=== PATIENT | male | born 1950 | race Caucasian/White ===

== ENCOUNTER → 2023-10-20 08:20 | Outpatient (REF) | payer MEDICARE, SELFPAY | LOC: RCS 08:20 | PROVIDERS: ATTENDING PHYSICIAN Internal Medicine | DX: I25.10 Atherosclerotic heart disease of native coronary artery without angina pectoris (principal) | CPT/HCPCS: 93017; 93005; 93350 ==

== ENCOUNTER → 2023-12-15 07:36 | Outpatient (REF) | payer MEDICARE, SELFPAY | LOC: EMG 07:36 | PROVIDERS: ATTENDING PHYSICIAN Nurse Practitioner Family; FAMILY PHYSICIAN Internal Medicine | DX: R20.2 Paresthesia of skin (principal); R20.0 Anesthesia of skin | CPT/HCPCS: 95886; 95910 ==

== ENCOUNTER 2024-03-06 07:14 | Day surgery (SDC) | payer MEDICARE, SELFPAY ==
[2024-03-06] VITALS (14 sets, daily range): BP systolic 101–159; BP diastolic 66–82; BMI 32.2
--- NOTE | 2024-03-06 10:17 | ITS.CL.CATH ---
[employer] Custodian - Catheterization
Cardiac Catheterization
Procedure Report:
LEFT HEART CATHETERIZATION
Date of Procedure: March 06, 2024
Referring: Dr. Santos Adkins
PROCEDURES:
1. Left heart catheterization with coronary and single-plane left ventriculography
INDICATION: This is a 74-year-old gentleman who was recently diagnosed with Parkinson's disease and a prior history of coronary artery disease with multiple overlapping RCA stent. His coronary history dates back to 12/2010 when he was admitted to
[facility] and ruled in for a small non-ST segment elevation myocardial infarction. He was referred for coronary angiography and underwent successful placement of overlapping 3.5 x 28 mm, 3.5 x 28 mm and 3.5 x 28 mm Xience stents from the
distal to proximal RCA which were postdilated with a 3.75 mm noncompliant balloon. He was noted to have significant residual atherosclerotic disease in a large OM 2 and return for attempted PCI via the right radial approach. Unfortunately, a
balloon would not cross and he returned several weeks later for PCI using a right femoral approach. The stenotic segment was crossed and balloon angioplasty was performed. Unfortunately, the lesion proved quite fibrotic and resistant to balloon
dilation even at high pressures. A dissection flap was noted at the area of balloon inflation and we did not feel comfortable proceeding with plaque modification with rotational atherectomy at that time. He followed up in the office and reported
that he had been doing very well and was free of any anginal symptoms and was exercising on the treadmill regularly and feeling fine. The last stress study was on October 20, 2023 and he exercised on a Sundar protocol for 7:36 achieving 9 METS of
physical activity. He developed significant ST segment depression in leads II, III, aVF and V4-V6 which normalized 1 minute in recovery. The stress echo imaging demonstrated no stress-induced ischemic wall motion abnormality and medical management
was continued. In early January 2024 [place] and developed chest, midepigastric, and bilateral arm discomfort lasting hours. He did not want to seek evaluation at any of the local hospitals and instead treated his symptoms with
Advil or Celebrex. He returned home and had been feeling well but tried walking on the treadmill and experienced the same discomfort. He was seen in our office on 03/02/2024 and is now referred for coronary angiography.
ACCESS: Right radial artery, 6 Mal[place]ian sheath
HEMODYNAMICS : (mmHg)
AO (s/d) : 113/63, 82
LV (s/d) : 115/6
LVEDP : 15
CORONARY FINDINGS
DOMINANCE: Right
LEFT MAIN: Normal
LEFT ANTERIOR DESCENDING: The LAD arises normally from the left main and runs in the anterior interventricular groove. The proximal LAD is moderate to heavily calcified and has a 50-60% stenosis from the origin to the proximal vessel. Several
small diagonal branches arise from the mid LAD. The mid to distal LAD has only minor irregularities.
CIRCUMFLEX: The circumflex gives rise to a small-medium caliber OM1 that runs in a distribution typical for a ramus intermedius and has an 80% ostial-proximal stenosis best seen in TURKISH caudal image. OM 2 is very small. The mid circumflex proximal
to OM 3 has a 60% stenosis. OM 3 has an 80-90% stenosis in the proximal vessel. This stenotic segment was highly resistant to balloon inflation back in 2010 when previous attempts at angioplasty were unsuccessful as the lesion was found to be
non-dilatable
RIGHT CORONARY ARTERY: The right coronary artery is known to be a dominant vessel. There are overlapping proximal to mid RCA stents which become 100% occluded within the area of stent overlap of the proximal and mid stents. The distal right
coronary artery is noted to fill via well-developed [id number]-[id number] collaterals.
VENTRICULOGRAPHY: Left ventriculography was performed in an ACOSTA projection. The digital single-plane left ventricular ejection fraction is estimated at 65% with very mild inferoapical hypokinesis
RADIATION SUMMARY: Fluoro Time (min): 2.8, Dose (mGy): 469, DAP (Gy.cm2) : 35.5
Closure Device: TR band
CONCLUSIONS
1. Multivessel coronary artery disease with 100% of the mid RCA, high grade and non-dilatable stenosis in OM3. OM1 has an 80% ostial stenosis and the ostium/proximal LAD has a calcified 50-60% stenosis.
2. Preserved LVEF
RECOMMENDATIONS
1. Will refer for CT surgical evaluation with bypass targets to PDA +/- PLB, OM1, OM3, and LAD
Copy to: Dr. Santos Adkins, Dr. Reece Stauffer
== END 2024-03-06 13:20 | disposition home or self-care (01) ==
LOC: CATH 07:14
PROVIDERS: ATTENDING PHYSICIAN Internal Medicine Interventional Cardiology; FAMILY PHYSICIAN Internal Medicine
DX: I25.10 Atherosclerotic heart disease of native coronary artery without angina pectoris (principal); Z95.5 Presence of coronary angioplasty implant and graft; G20.A1 Parkinson's disease without dyskinesia, without mention of fluctuations; I25.2 Old myocardial infarction; Z79.82 Long term (current) use of aspirin
CPT/HCPCS: 93458; C1894; Q9967

== ENCOUNTER → 2024-03-28 13:24 | Outpatient (REF) | payer MEDICARE, SELFPAY | LOC: RCS 13:24 | PROVIDERS: ATTENDING PHYSICIAN Thoracic Surgery (Cardiothoracic Vascular Surgery); FAMILY PHYSICIAN Internal Medicine; REFERRING PHYSICIAN Internal Medicine Interventional Cardiology | DX: Z01.810 Encounter for preprocedural cardiovascular examination (principal) | CPT/HCPCS: 71250; 93306 ==

== ENCOUNTER 2024-04-09 05:07 | Inpatient (IN) | payer MEDICARE, SELFPAY ==
[2024-04-05 08:33] VITALS: BMI 32.3
[2024-04-05 09:20] LABS: % Basophils 0.5 % (0-2); % Eosinophils 1.2 % (0-6); % Immature Granulocytes 0.4 % (0-0.5); % Lymphocytes 20.6 % (20.5-51.1); % Monocytes 8.1 % (1.7-9.3); % Neutrophils 69.2 % (42.2-75.2); Absolute Eosinophils 0.1 10^3/uL (0-0.7); Absolute Lymphocytes 1.7 10^3/uL (1.2-3.4); Absolute Monocytes 0.7 10^3/uL (0.1-0.6); Absolute Neutrophils 5.6 10^3/uL (1.4-6.5); Hematocrit 43.3 % (39.0-52.0); Hemoglobin 14.9 g/dL (13.0-18.0); Mean Corp Hgb Conc. 34.4 g/dL (33.0-37.0); Mean Corpuscular Hgb 29.6 pg (27.0-31.0); Mean Corpuscular Volume 85.9 fL (80.0-94.0); Mean Platelet Volume 11.9 fL (7.4-10.4); Nucleated Red Blood Cells % 0 % (-); Platelet Count 193 10^3/uL (130-400); Red Blood Cell Count 5.04 10^6/uL (4.70-6.10); Red Cell Dist. Width 13.2 % (11.5-14.5); White Blood Cell Count 8.1 10^3/uL (4.8-10.8)
[2024-04-05 09:36] LABS: INR 1.03
[2024-04-05 09:37] LABS: APTT 28.1 Sec (23.4-35.0)
[2024-04-05 09:43] LABS: ALT (SGPT) 39 U/L (0-50); AST (SGOT) 33 U/L (17-59); Albumin 4.7 g/dl (3.5-5.0); Alkaline Phosphatase 50 U/L (38-126); Blood Urea Nitrogen 22 mg/dl (9-20); Carbon Dioxide 31 mmol/L (22-30); Chloride 100 mmol/L (98-107); Direct Bilirubin 0.2 mg/dl (0.0-0.4); Estimated Creatinine Clearance 60 ml/min; Glucose 99 mg/dl (70-99); Potassium 4.1 mmol/L (3.5-5.1); Sodium 142 mmol/L (135-145); Total Bilirubin 2.8 mg/dl (0.2-1.3); Total Protein 6.9 g/dl (6.3-8.2); eGFR > 60.00
[2024-04-05 09:43] LABS: Urine Albumin Negative (Neg - Trace); Urine Bilirubin Negative (Negative); Urine Character Clear (Clear); Urine Color Yellow; Urine Glucose Negative (Negative); Urine Ketone Negative (Negative); Urine Leukocyte Negative (Negative); Urine Nitrite Negative (Negative); Urine Occult Blood Negative (Negative); Urine Specific Gravity 1.015 (<1.030); Urine Urobilinogen Negative (Neg - 1+); Urine pH 6.5 (5.0-9.0)
[2024-04-05 10:33] LABS: Glycohemoglobin (HgbA1c) 5.8 % (4.0-5.6)
--- NOTE | 2024-04-05 10:34 | CM ---
CM following for DC planning needs.
Met w/ patient, spouse Kate and dtr. Elda during PATs for planned CABG 04/09.
Pt. reports that he resides w/ spouse in a private, 1 story home w/ 2-3 LAMONT. There is also a ramp to enter.
Pt. is functionally indep. w/ ADLs, mobility without the use of any assisted device. + drives.
Pt. has RX plan and uses [facility] in [facility] for prescription needs.
Reviewed pre and post op routines.
Soap, shower instructions and CABG booklet reviewed/provided.
Discussed post op MD appointments, Cardiac Rehab and visit from CT Transitional Care RN/ pt. agreeable to this.
Plan is for CABG 04/09.
Antic. DC plan is for home w/ CT Transitional Care RN.
CM to follow.
[2024-04-09] VITALS (17 sets, daily range): BP systolic 91–152; BP diastolic 57–89; BMI 28.1
[2024-04-09] MEDS: BACTROBAN 2% OINTMENT 1 APPLIC NASAL ×2 (05:41→20:04)
[2024-04-09] MEDS: PROTONIX 40 MG PO (05:43)
[2024-04-09] MEDS: MAGNESIUM OXIDE 500 MG PO (05:43)
[2024-04-09] MEDS: LOPRESSOR 12.5 MG PO (05:55)
--- NOTE | 2024-04-09 06:11 | PTCARENOTE ---
admitted pt to 2263. pt confirmed NPO since midnight and 2 showers @ home. pt clipped and prepped with G wipes, admission questions completed, pre-op meds given. pre-op education provided.
[2024-04-09 07:24] LABS: Urine Albumin Trace (Neg - Trace); Urine Bilirubin Negative (Negative); Urine Character Clear (Clear); Urine Color Yellow; Urine Glucose Negative (Negative); Urine Ketone Negative (Negative); Urine Leukocyte Negative (Negative); Urine Nitrite Negative (Negative); Urine Occult Blood Negative (Negative); Urine Urobilinogen Negative (Neg - 1+)
[2024-04-09 07:48] LABS: ACT+ - POC 112 Seconds (82-134)
[2024-04-09 09:41] LABS: B.E. - POC 2.8 mmol/L; Glucose - POC 142 mg/dl (70-99); HCO3 - POC 26 mmol/L (21-28); Hematocrit - POC 37 % PCV (42-52); Hemodilution- POC No; Hemoglobin Calculated - POC 12.7; Ionized Calcium - POC 1.21 mmol/L (1.15-1.33); O2 Saturation %Calculated-POC 99.9 % (94-98); PCO2 - POC 36 mmHg (35-48); PO2 - POC 287 mmHg (83-108); POC Comment PRE; Potassium - POC 3.4 mmol/L (3.5-5.1); Sodium - POC 141 mmol/L (136-145); pH - POC 7.47 (7.35-7.45)
[2024-04-09 10:02] LABS: ACT+ - POC > 1003 Seconds (82-134)
[2024-04-09 10:15] LABS: B.E. - POC 5.3 mmol/L; Glucose - POC 158 mg/dl (70-99); HCO3 - POC 30 mmol/L (21-28); Hematocrit - POC 31 % PCV (42-52); Hemodilution- POC Yes; Hemoglobin Calculated - POC 10.7; PCO2 - POC 41 mmHg (35-48); PO2 - POC 358 mmHg (83-108); POC Comment CPB; Potassium - POC 4.1 mmol/L (3.5-5.1); Sodium - POC 139 mmol/L (136-145); pH - POC 7.46 (7.35-7.45)
[2024-04-09 10:29] LABS: B.E. - POC 4.6 mmol/L; Glucose - POC 154 mg/dl (70-99); HCO3 - POC 29 mmol/L (21-28); Hematocrit - POC 32 % PCV (42-52); Hemodilution- POC Yes; Hemoglobin Calculated - POC 10.9; Ionized Calcium - POC 1.09 mmol/L (1.15-1.33); O2 Saturation %Calculated-POC 99.9 % (94-98); PCO2 - POC 43 mmHg (35-48); PO2 - POC 309 mmHg (83-108); POC Comment CPB; Potassium - POC 3.6 mmol/L (3.5-5.1); Sodium - POC 141 mmol/L (136-145); pH - POC 7.44 (7.35-7.45)
[2024-04-09 10:59] LABS: ACT+ - POC 718 Seconds (82-134)
[2024-04-09 11:26] LABS: B.E. - POC 3.9 mmol/L; Glucose - POC 129 mg/dl (70-99); HCO3 - POC 30 mmol/L (21-28); Hematocrit - POC 30 % PCV (42-52); Hemodilution- POC Yes; Hemoglobin Calculated - POC 10.3; Ionized Calcium - POC 1.09 mmol/L (1.15-1.33); O2 Saturation %Calculated-POC 99.9 % (94-98); PCO2 - POC 48 mmHg (35-48); PO2 - POC 340 mmHg (83-108); POC Comment CPB; Potassium - POC 3.6 mmol/L (3.5-5.1); Sodium - POC 142 mmol/L (136-145); pH - POC 7.39 (7.35-7.45)
[2024-04-09 11:36] LABS: ACT+ - POC 596 Seconds (82-134)
[2024-04-09 12:05] LABS: B.E. - POC 2.6 mmol/L; Glucose - POC 117 mg/dl (70-99); HCO3 - POC 28 mmol/L (21-28); Hematocrit - POC 32 % PCV (42-52); Hemodilution- POC Yes; Ionized Calcium - POC 1.09 mmol/L (1.15-1.33); O2 Saturation %Calculated-POC 99.9 % (94-98); PCO2 - POC 44 mmHg (35-48); PO2 - POC 316 mmHg (83-108); POC Comment CPB; Potassium - POC 3.6 mmol/L (3.5-5.1); Sodium - POC 144 mmol/L (136-145); pH - POC 7.41 (7.35-7.45)
[2024-04-09 12:09] LABS: ACT+ - POC 115 Seconds (82-134)
--- NOTE | 2024-04-09 12:36 | W.CVOR.SURPR ---
CV[facility] Surgeon Immed Pre Op
-
I have examined this patient prior to performance of the scheduled procedure.
The patient's condition is unchanged from the time of the dictated/written History and
Physical and the patient is able to undergo the scheduled procedure.
--- NOTE | 2024-04-09 12:37 | W.IMMPOSTOP ---
Addendum entered and electronically signed by Gonzalo Paul MD 04/09/24 16:29:
[id number]
Original Note:
Surgical Immed Post Op Note
-
CARDIAC SURGERY OPERATIVE NOTE:
Preoperative Dx:
MVCAD
Postoperative Dx:
Same
Procedures:
1) Median sternotomy
2) Takedown of CHIQUI (narrow pedicle)
3) Endoscopic harvest/prep of RLE GSV
4) CABG x 4 (CHIQUI to LAD, sGSV to OM1 to OM3, GSV to PDA)
Surgeon:
Gonzalo Paul M.D.
Assistants:
Pattie Oneil P.A.-C. - first line production supervisor throughout
Ct Puga P.A.-C. - endoscopic harvest/prep of RLE GSV; cliltz-qmre-fyrb closure
Anesthesia:
Viraj Brown M.D. and Sheela Johnston C.R.N.A.
Perfusion:
Santi Gallardo.C.P.; XC: 107min, CPB: 147min
Findings:
CHIQUI was a very healthy appearing conduit w/ very brisk blood flow; ELD 2.5mm
GSV was a healthy appearing conduit w/ ELD 3.0-3.25mm
LAD was visible on the epicardial surface, scattered calcifications, ELD 2.75mm at distal midpoint anastomosis
OM1 was visible on the epicardial surface, dense calcifications, ELD 1.5mm, mcdv-im-hkjw anastomosis performed over 1mm shunt
OM3 was visible on the epicardial surface, scattered calcifications, ELD 2.75mm at midpoint anastomosis
PDA was visible on the epicardial surface, scattered calcifications, ELD 2.5mm at proximal anastomosis
Post-SHARMAINE: LVEF 60-65% w/o RWMA, unchanged trace AI, MR, TR
Exceptional flow in all grafts on intraoperative transit-time U/S flow probe assessment
Complications:
None
Transfusions:
None
Implants:
CT x 4 (B/L pleural, inferior mediastinal, superior mediastinal)
Sternal wires x 10
Condition:
59 isoelectric sinus (-0.3/-0.2), 122/72. CVP 19. 99%
GTTS: precedex 0.5
--- NOTE | 2024-04-09 12:41 | CON.INTV ---
Consultation
Consultation Request
Date/Time Consultation Requested: 04/09/2024-12:30 PM
Date/Time Consultation Performed: 04/09/2024-1 PM
Requesting Provider: Dr. Paul
Performing Provider: Dr. Jones
Reason for Consultation: Postoperative ventilator/critical care management
Medical History
-
Chief Complaint: CAD
History of Present Illness:
74-year-old male with a history of hyperlipidemia, hypothyroid, hypertension with known CAD/stents underwent CABG-cartridge maker consulted for ventilator/postoperative critical care management 04/09/2024. The patient is seen postoperatively on a
ventilator in the cardiovascular intensive care unit. Operative records were reviewed. Pressors and inotropes were reviewed as well as chest tube output and ventilator settings. Patient is sedated on the ventilator and review of systems was
unobtainable.
Past Medical History
Past Medical History: None (Hyperlipidemia. Hypothyroid. Hypertension. CAD/stents. Appendectomy.)
Social History
Tobacco: Non-smoker
Alcohol: None
Drug: None
Personal:
Living: With Family
Employment: Retired
Occupational Exposures: No known asbestos exposure
Environmental Exposures: No known tuberculosis exposure
Allergies / Home Medications
Allergies
Allergy/AdvReac Type Severity Reaction Status Date / Time
No Known Allergies Allergy Verified 03/06/24 07:51
Home Medications
�Medication �Instructions �Recorded �Confirmed �Last Taken �Type
lisinopril 5 mg tablet 5 mg PO DAILY 01/07/11 04/09/24 04/06/24 History
Prevagen 1 cap PO DAILY 03/06/24 04/09/24 04/08/24 History
Total Beets 1 cap PO BID 03/06/24 04/09/24 04/08/24 History
aspirin 81 mg chewable tablet 81 mg PO DAILY 03/06/24 04/09/24 04/08/24 08:00 History
atorvastatin 40 mg tablet 40 mg PO DAILY 03/06/24 04/09/24 04/08/24 08:00 History
coQ10 (ubiquinol) 100 mg capsule 100 mg PO DAILY 03/06/24 04/09/24 04/07/24 10:00 History
(Qunol Aly CoQ10)
triamterene 37.5 1 cap PO DAILY 03/06/24 04/09/24 04/07/24 History
mg-hydrochlorothiazide 25 mg
capsule
ascorbic acid (vitamin C) 500 mg 500 mg PO DAILY 04/02/24 04/09/24 04/08/24 08:00 History
tablet (Vitamin C)
celecoxib 200 mg capsule (Celebrex) 200 mg PO BID PRN pain 04/09/24 04/09/24 03/26/24 History
Review of Systems
-
Unable to Obtain full review of systems at this time due to: Other (Per HPI)
Vitals / Labs / Diagnostic Testing
Vital Signs
Temp Pulse Resp BP Pulse Ox
97.8 F 57 16 140/89 96
04/09/24 05:27 04/09/24 05:55 04/09/24 05:27 04/09/24 05:55 04/09/24 05:27
Microbiology
04/05/24 08:43 Nose MRSA Screen - Final
No Methicillin Resistant Staphylococcus aureus isolated.
Diagnostic Testing:
Physical Exam
-
Exam:
Well-nourished and well-developed in no apparent distress
HEENT-atraumatic, normocephalic, oral tracheal intubation
Heart-regular rate and rhythm-no murmurs, rubs or gallops
Chest-clear to auscultation, no wheezes, crackles, median sternotomy bandage is not removed
Abdomen soft nondistended
Extremities-no cyanosis, clubbing, edema and good peripheral pulses
Integument-intact, no rashes, lesions or ecchymosis
Neurologically not alert, not oriented, not moving any of his extremities sedated on a ventilator
Assessment
-
74-year-old male with a history of hyperlipidemia, hypothyroid, hypertension with known CAD/stents underwent CABG-cartridge maker consulted for ventilator/postoperative critical care management 04/09/2024.
CAD with a history of stents and preoperative preserved EF
Status post EDST-Bswm-NJR, GSV-OM1 to OM3, GSV to PDA--Dr. Paul 04/09/2024
Pulmonary nodule-10 mm groundglass nodule in the lingula-incidentally noted 03/28/2024
Conditions present prior to admission:
Hypertension
Hyperlipidemia
CAD with history of stent
Gallstone
Plan
Ventilator settings reviewed
FiO2 will be weaned
Minute ventilation will be adjusted
Arterial blood gases will be monitored
Spontaneous breathing trial will be attempted with hopeful extubation after anesthesia/sedation wear off
Pressors/antihypertensive/inotropes/diuretics will be provided as needed
Monitor chest tube output
Monitor hemoglobin
Monitor platelet count and coags
Transfuse blood product if needed
CT surgery following chest tubes
Monitor blood sugar
Insulin drip per protocol
Aspiration precautions
VAP prevention protocol
DVT prophylaxis
Early nutrition
Early mobilization
Recommend outpatient pulmonary follow-up with pulmonary nodule-repeat CT chest 03/2025
Critical care statement: A total of 50 minutes of critical care time was provided for this patient today. This includes management of ventilator, spontaneous breathing trial, arterial blood gases, pressors, of unstable vital signs, evaluation of the
patient at bedside, reviewing the patient's pertinent medical records including radiographs, microbiology, laboratory evaluations, and discussion with primary team and critical care nursing.
Diagnostic data:
CT chest 01/07/2011-no evidence for thoracic aortic aneurysm
CT chest 03/28/2024-moderate amount of high attenuation along the coronary arteries could represent calcified plaque stents, mild ascending aortic ectasia 3.7 cm, 10 mm groundglass nodule in the lingula recommend follow-up in 6 to 12 months,
cholelithiasis with 4 mm gallstone
Echocardiogram 03/28/2024-EF 57%, normal diastolic function
Cardiac catheterization 03/06/2024-multivessel CAD with 100% of the mid RCA, high-grade nondilated both stenosis OM 3 and OM1 has an 80% ostial stenosis and a 50 to 60% proximal LAD stenosis with preserved EF
Spirometry 04/05/2024-FEV1 2.9 L - 111%, FVC 3.9-112%
Data Reviewed
-
PFT: Report reviewed by me
EKG: Report reviewed by me
Radiology: Image personally visualized and interpreted and Report reviewed by me
CT Scan: Report reviewed by me
Medical Tests (Nuc Med, Echo etc): Report reviewed by me
Labs: Labs reviewed by me
Old Records: Reviewed
Critical Care Time (in minutes): 50
--- NOTE | 2024-04-09 12:47 | CM ---
pt in OR today, cm to follow.
[2024-04-09 13:13] LABS: Glucose - Point of Care 122 mg/dl (70-99)
[2024-04-09 13:21] LABS: B.E. 1.6 mmol/L; HCO3 25.8 mmol/L (21-28); Ionized Calcium 1.22 mMOL/L (1.15-1.33); O2 Saturation % 99.2 % (94-98); PCO2 38 mmHg (35-48); PO2 168 mmHg (83-108); Potassium 3.6 mMOL/L (3.5-5.1); Sodium 138 mMOL/L (136-145); pH 7.44 (7.35-7.45)
--- NOTE | 2024-04-09 13:28 | PTCARENOTE ---
Received pt from [facility] at 1300; pt intubated and sedated; Sinus Bradycardia on monitor and VSS; RIJ Cordis with SLIC, Left A-line and PIV x1 all lines leveled and zeroed; Precedex infusing see flow sheet for details; + rub; lungs diminished; ETT 8 @
24; SIMV 60%/550/12/5/5; CT x4 to -20 wall suction, Pleurals with +[address] leak [address] Dr Paul aware, no crepitus noted and no air leak in mediastinals; hypoactive bowel sounds; Villa catheter draining clear yellow urine; palpable pulses
throughout; no edema noted; all surgical dressing C/D/I; see nursing documentation for further details.
[2024-04-09 13:33] LABS: APTT 29.4 Sec (23.4-35.0); INR 1.48; PT 18.2 Sec (11.4-14.6)
[2024-04-09] MEDS: KCL 50 IV ×2 (13:39→15:45)
[2024-04-09 13:40] LABS: B.E. - POC 1.9 mmol/L; Glucose - POC 115 mg/dl (70-99); HCO3 - POC 26 mmol/L (21-28); Hematocrit - POC 30 % PCV (42-52); Hemodilution- POC Yes; Hemoglobin Calculated - POC 10.3; Ionized Calcium - POC 1.29 mmol/L (1.15-1.33); O2 Saturation %Calculated-POC 99.4 % (94-98); PCO2 - POC 37 mmHg (35-48); PO2 - POC 151 mmHg (83-108); POC Comment POST; Potassium - POC 2.9 mmol/L (3.5-5.1); Sodium - POC 144 mmol/L (136-145); pH - POC 7.45 (7.35-7.45)
--- NOTE | 2024-04-09 13:41 | W.PN.UPDATE ---
Update Note
Progress Note Update
IV fluids: 1200
U.O.:� 400
UF:� 1200
Blood:� None
Wires:� None
Inotropes:� None
Pressors:� Levo +/- @1
Sedatives:� Precedeex
�
NEURO: sedated on precedex, pupils +2mm B/L
RESP: #8OT @24cm> 550/60%/12/5. Lungs clear B/L. 2 mediastinal (20cc on arrival) and R/L pleural (10cc on arrival) chest tubes to -20cm suction. Sanguineous drainage
CV: RRR +S1, S2, no S3, no�rub, no murmur. Dermabond to median sternotomy. RIJ w/slicc
ABD: round, soft, no BS
EXT: no edema, +2/4 DP pulses B/L, no femoral bruit, right [place] wrap intact; left radial A-line intact
: Villa with clear yellow urine
�
A/P: POD #0 s/p CABG x4 (ASHLEY-LAD, SVG-OM1 and OM3, SVG to PDA)
SHARMAINE: EF�nml
- wean and extubate
- Monitor CT and urine output
- Follow up labs and CXR
- Wean levophed for maps >65
- Will start ASA tonight
- EKG pending and will send to cards
- Cards consulted
�
# acute surgical blood loss anemia-expected
- trend CBC
�
# Hyperlipidemia
- resume�statin
[2024-04-09 13:43] LABS: Blood Urea Nitrogen 19 mg/dl (9-20); Estimated Creatinine Clearance 81 ml/min; Glucose 119 mg/dl (70-99); Magnesium 2.6 mg/dl (1.6-2.3)
[2024-04-09] MEDS: ANCEF 10 IV ×2 (13:44)
[2024-04-09] MEDS: NSS 500 IV (13:45)
[2024-04-09] MEDS: TYLENOL PO (13:46)
[2024-04-09] MEDS: VITAMIN C PO (13:46)
[2024-04-09] MEDS: LIPITOR PO (13:46)
[2024-04-09] MEDS: NEURONTIN PO ×2 (13:46→16:18)
[2024-04-09 13:49] LABS: Hematocrit 31.5 % (39.0-52.0); Hemoglobin 10.8 g/dL (13.0-18.0); Platelet Count 132 10^3/uL (130-400)
[2024-04-09 14:05] LABS: Glucose - Point of Care 157 mg/dl (70-99)
--- NOTE | 2024-04-09 14:41 | W.PN.CARDCBS ---
Addendum entered and electronically signed by Marcus Rowan MD 04/09/24 16:05:
Patient seen, interviewed and examined by me.
Well-appearing, no acute distress, sleeping, recently extubated
Regular rate and rhythm with normal S1 and S2, no S3 no S4. There is a grade 1/6 apical holosystolic murmur and there is a pericardial friction rub. PMI is normally placed.
Lungs are clear to auscultation bilaterally anteriorly without wheezes rales or rhonchi.
Abdomen soft and nondistended.
Extremities show trace pretibial edema bilaterally no clubbing or cyanosis.
He is status post CABG x 4 (CHIQUI to LAD, sGSV to OM1 to OM3, GSV to PDA) 04/09/2024 and hemodynamically stable on minimal pressor support, maintaining sinus rhythm and recently extubated.
Continue postoperative care.
Original Note:
Today's Communication / Plan
-
Continue post op care
Impression / Plan
-
PCP: Dr. Dobbs
General Operator: Dr. Adkins
Impression:
CAD
s/p RCA PCI x2 12/24/2010
s/p balloon angioplasty of mid PDA 12/24/2010
unsuccessful PCI of OM 2 01/07/2011
s/p CABG x 4 (CHIQUI to LAD, sGSV to OM1 to OM3, GSV to PDA) 04/09/2024
Hypertension
Hyperlipidemia
Hypothyroidism
Parkinson's disease
Echo 03/28/2024: EF 57%, mild-moderate LVH, mild MR, trace AI, mild TR, estimated PAP 31 mmHg, normal aortic root for body surface area, mildly dilated ascending aorta at 4.0 cm
Plan:
-s/p CABG x 4 (CHIQUI to LAD, sGSV to OM1 to OM3, GSV to PDA) 04/09/[address] Paul.
-Seen post op, remains intubated, but starting to wake up.
-Post op EKG reviewed. SR with 1st degree V block, RBBB.
-Hgb stable at 10.8. No blood products given.
-BP stable. Not on any drips currently.
-Continue aspirin and plavix
-Continue lipitor 40mg daily
-Continue post op care
Progress Note - General Operator
Subjective
Date of Service: April 09, 2024
Remains intubated, starting to wake up.
Objective
Labs:
04/09/24 13:13
Labs
Hgb 10.8 g/dL (13.0-18.0) L D 04/09/24 13:13
Hct 31.5 % (39.0-52.0) L 04/09/24 13:13
Plt Count 132 10^3/uL (130-400) D 04/09/24 13:13
PT 18.2 Sec (11.4-14.6) H 04/09/24 13:13
INR 1.48 04/09/24 13:13
APTT 29.4 Sec (23.4-35.0) 04/09/24 13:13
Sodium 142 mmol/L (135-145) 04/05/24 08:43
Potassium 4.1 mmol/L (3.5-5.1) 04/05/24 08:43
BUN 19 mg/dl (9-20) 04/09/24 13:13
Creatinine 0.8 mg/dL (0.7-1.3) 04/09/24 13:13
Glucose 119 mg/dl (70-99) H 04/09/24 13:13
Vital Signs and I&O:
Vital Signs
Temp Pulse Resp BP Pulse Ox
96.7 F L 73 12 140/89 98
04/09/24 14:07 04/09/24 14:05 04/09/24 14:07 04/09/24 05:55 04/09/24 14:38
Vital Signs
Temp Pulse Resp BP Pulse Ox
96.7 F L 73 12 140/89 98
04/09/24 14:07 04/09/24 14:05 04/09/24 14:07 04/09/24 05:55 04/09/24 14:38
Intake & Output
04/07/24 04/08/24 04/09/24 04/10/24
06:59 06:59 06:59 06:59
Intake Total 31.1 / 31.1
Output Total 45 / 45
Balance -13.9 / -13.9
Physical Exam
Physical Exam
GEN: No distress, intubated
HEENT: mmm
LUNGS: CTA b/l, no wheezes/rales
CV: Reg, S1/S2, + rub
EXT: No clubbing, cyanosis, or edema
SKIN: Warm, dry, no rash
[2024-04-09] MEDS: OFIRMEV 100 IV (15:01)
[2024-04-09 15:07] LABS: Glucose - Point of Care 200 mg/dl (70-99)
--- NOTE | 2024-04-09 15:22 | PTCARENOTE ---
Pt placed on CPAP by respiratory; Insulin drip started per Glycemic protocol see flow sheet for details.
[2024-04-09 15:26] LABS: B.E. -1.8 mmol/L; HCO3 23.1 mmol/L (21-28); Ionized Calcium 1.16 mMOL/L (1.15-1.33); O2 Saturation % 98.8 % (94-98); PCO2 39 mmHg (35-48); PO2 109 mmHg (83-108); Potassium 3.8 mMOL/L (3.5-5.1); Sodium 137 mMOL/L (136-145); pH 7.38 (7.35-7.45)
[2024-04-09] MEDS: CALCIUM GLUCONATE 100 IV ×2 (15:43→21:20)
[2024-04-09] MEDS: ZOFRAN 4 MG IV (15:45)
[2024-04-09 15:52] LABS: ACT+ - POC > 1003 Seconds (82-134)
[2024-04-09 15:52] LABS: ACT+ - POC > 1003 Seconds (82-134)
--- NOTE | 2024-04-09 15:52 | PTCARENOTE ---
Pt extubated at 1535; 6L NC.
[2024-04-09 16:09] LABS: Glucose - Point of Care 172 mg/dl (70-99)
[2024-04-09] MEDS: PACERONE PO (16:18)
[2024-04-09] MEDS: DILAUDID 0.25 MG IV (16:30)
[2024-04-09 17:16] LABS: Glucose - Point of Care 147 mg/dl (70-99)
[2024-04-09] MEDS: LACTATED RINGERS 250 ML IV (17:18)
[2024-04-09 17:35] LABS: Hematocrit 34.5 % (39.0-52.0); Platelet Count 188 10^3/uL (130-400)
[2024-04-09 18:09] LABS: Glucose - Point of Care 136 mg/dl (70-99)
[2024-04-09 19:08] LABS: Glucose - Point of Care 125 mg/dl (70-99)
[2024-04-09] MEDS: ANCEF 5 IV (20:03)
[2024-04-09] MEDS: LOW STRENGTH ASPIRIN 81 MG PO (20:04)
[2024-04-09] MEDS: TORADOL 15 MG IV (20:05)
[2024-04-09] MEDS: SENOKOT-S 1 TABLET PO (20:05)
--- NOTE | 2024-04-09 20:30 | PTCARENOTE ---
Patient received resting in bed. Family at bedside. Patient A+A+Ox3. No neurological deficits noted. Moves all extremities. Pain management with Toradol 15mg IV. 3L O2. SpO2 97%. Four chest tubes - Mediastinal x2 and Right and Left Pleural -
Intact and patent - 10-20 ml red drainage - No air leak. Chest tube dressing intact. Sinus Rhythm with rare PVC. Heart rate 60-70's. Rub noted. No c/o chest pain, pressure or discomfort. Abdomen soft, round, nontender. Hypoactive bowel
sounds. No c/o nausea. No vomiting. No BM. Villa catheter - Temperature sensing - Light erica, yellow urine - Outputs as documented. Right I.J. Cordis with [place] catheter - CVP 8. Left radial arterial line - Intact - Pressure bag/saline flush
- Flushes without difficulty - Zeroed and calibrated - Waveform within normal limits. Sternal dressing intact. Right groin puncture site - Intact - Open to air. Right knee incision - Intact - [place] Aime Wrap intact. Positive, palpable pulses.
Patient with no c/o back or flank pain. Insulin gtt - Glycemic Protocol. Assessment as documented.
[2024-04-09 20:59] LABS: Glucose - Point of Care 106 mg/dl (70-99)
--- NOTE | 2024-04-09 21:30 | PTCARENOTE ---
Patient sleeping. IV Calcium Gluconate 2 grams/100 ml over 1hr infusing without difficulty per PA order. No further changes from previous assessment.
[2024-04-09] MEDS: ROXICODONE 5 MG PO (21:45)
[2024-04-09] MEDS: NEURONTIN 100 MG PO (21:46)
[2024-04-09] MEDS: TYLENOL 1000 MG PO (21:46)
[2024-04-09 23:14] LABS: Glucose - Point of Care 100 mg/dl (70-99)
[2024-04-10] VITALS (19 sets, daily range): BP systolic 91–150; BP diastolic 61–89; PULSE 66–67; O2SAT 97–98; BMI 29.7
--- NOTE | 2024-04-10 | PTCARENOTE ---
Patient dozing intermittently. Patient A+A+Ox3 during periods of care. No neurological deficits noted. CVP 8. Assessment/Interventions as documented.
[2024-04-10 01:14] LABS: Glucose - Point of Care 109 mg/dl (70-99)
[2024-04-10] MEDS: TORADOL 15 MG IV ×2 (02:44→20:12)
[2024-04-10 02:56] LABS: Glucose - Point of Care 98 mg/dl (70-99)
[2024-04-10 03:43] LABS: Hematocrit 33.1 % (39.0-52.0); Hemoglobin 11.3 g/dL (13.0-18.0); Mean Corp Hgb Conc. 34.1 g/dL (33.0-37.0); Mean Corpuscular Hgb 30.4 pg (27.0-31.0); Mean Platelet Volume 11.7 fL (7.4-10.4); Platelet Count 155 10^3/uL (130-400); Red Blood Cell Count 3.72 10^6/uL (4.70-6.10); Red Cell Dist. Width 13.2 % (11.5-14.5); White Blood Cell Count 20.7 10^3/uL (4.8-10.8)
--- NOTE | 2024-04-10 04:03 | W.PN.CT ---
Addendum entered and electronically signed by KECIA Aguirre 04/10/24 14:05:
additional Diagnosis (per [facility] Query):
Moderate Malnutrition
Original Note:
Today's Communication / Plan
-
Plan:
-No major issues overnight. Hemodynamically and neurologically intact
-Successfully extubated on 04/09/24 @ 1535
-Weaned off Levophed gtt overnight. Remains on insulin gtt per protocol
-No swan, u/o since OR 930 mL
-Monitor chest tube output: 2meds 140/290, R/L pleural 120/200
-Cont. current meds (ASA, Amiodarone, Lipitor, Lopressor-holding AM dose given soft BP overnight; will add Plavix)
-D/C'd A-line/SLIC @ 0430
-D/C'd ramirez catheter @ 0600
-Maintain cordis
-No temporary PW
-Encourage use of IS
-Wean off of O2 as tolerated
-OOB into chair/Ambulate
Assessment / Plan
-
Assessment:
-S/P Median sternotomy/CABG x 4 (CHIQUI to LAD, sGSV to OM1 to OM3, GSV to PDA)/Endoscopic harvest/prep of RLE GSV, by Dr. Paul, 04/09/24, pod#1
-Multivessel CAD
-Hx AR S/p PCI with overlapping stents x 3 to prox-distal RCA, 12/24/2010
-S/P unsuccessful PCI/Angioplasty of OM2, 01/07/11
-Hypertension
-Hyperlipidemia
-Prediabetes (hgb A1C 5.8)
-Hypothyroidism
-Parkinson's disease
-S/p Appendectomy
-Acute postop blood loss/Anemia (stable without transfusion)
-Acute postop atelectasis
-Acute postop confusion (improving, apparently speaks Puerto Rican prior to surgery but unable to do so initially post surgery, just solomon language of Monegasque)
-Acute postop hypovolemia with subsequent hypervolemia
-Postop EKG suggestive of acute pericarditis (+rub, not in excruciating pain)
Discussed patient care with: Cardiology, Nursing, Respiratory Therapy, Pharmacy and Care Team
Subjective
Procedure
-S/P Median sternotomy/CABG x 4 (CHIQUI to LAD, sGSV to OM1 to OM3, GSV to PDA)/Endoscopic harvest/prep of RLE GSV, by Dr. Paul, 04/09/24
-
Date of Service: April 10, 2024
Pt c/o incisional pain, otherwise feels well
Objective Data
-
Lab Results
04/10/24 03:28
PT 18.2 Sec (11.4-14.6) H 04/09/24 13:13
INR 1.48 04/09/24 13:13
APTT 29.4 Sec (23.4-35.0) 04/09/24 13:13
Vital Signs
Vital Signs
Temp Pulse Resp BP Pulse Ox
99.1 F 69 16 94/65 96
04/10/24 03:00 04/10/24 03:00 04/10/24 03:00 04/10/24 02:00 04/10/24 03:00
CT Intake/Output/Weight
04/09/24 04/09/24 04/10/24
06:59 18:59 06:59
Intake Total 413.1 / 833.9 420.8 / 833.9
Output Total 705 / 1220 515 / 1220
Balance -291.9 / -386.1 -94.2 / -386.1
SaO2: 96 (2L)
Physical Exam
-
General: Awake, Oriented and AOx3
Cardiovascular: Regular rate & rhythm, No Murmurs, Rub and No Gallop
Respiratory: Decreased Breath Sounds (at bases, otherwise clear)
Sternum: Stable
Incision: Clean, Dry, Intact and Dressing Intact
Extremities: No Edema
Data Reviewed
-
Lab Results: Results Reviewed
Medications: Active Meds Reviewed
Chest X-Ray: Report Reviewed and Image Reviewed
ECG: Report Reviewed and Image Reviewed
[2024-04-10 04:06] LABS: Blood Urea Nitrogen 22 mg/dl (9-20); Calcium 8.7 mg/dl (8.4-10.2); Carbon Dioxide 25 mmol/L (22-30); Chloride 106 mmol/L (98-107); Estimated Creatinine Clearance 72 ml/min; Glucose 100 mg/dl (70-99); Magnesium 1.9 mg/dl (1.6-2.3); Potassium 4.1 mmol/L (3.5-5.1); Sodium 141 mmol/L (135-145); eGFR > 60.00
[2024-04-10] MEDS: TYLENOL 1000 MG PO ×3 (04:42→21:00)
[2024-04-10] MEDS: ANCEF 5 IV ×2 (04:42→13:01)
[2024-04-10 05:14] LABS: Glucose - Point of Care 111 mg/dl (70-99)
--- NOTE | 2024-04-10 05:30 | PTCARENOTE ---
Patient A+A+Ox3. No neurological deficits noted. EKG completed. AM labs collected and sent. Patient given CHG bath and linens changed. Chest tube dressing changed. Patient de-lined. Portable CXR completed. Villa catheter to be removed. OOB
to chair. Assessment/Interventions as documented.
[2024-04-10 07:14] LABS: Glucose - Point of Care 98 mg/dl (70-99)
--- NOTE | 2024-04-10 07:41 | W.PN.INTV ---
Today's Communication / Plan
Recommendations
Hemodynamically and neurologically stable
Tolerated extubation
Wean FiO2
Increase activity
Wean norepinephrine
Insulin drip
Likely transfer to telemetry-call pulmonary if respiratory issues arise
Outpatient pulmonary follow-up for nodule
Assessment
-
74-year-old male with a history of hyperlipidemia, hypothyroid, hypertension with known CAD/stents underwent CABG-edge inker consulted for ventilator/postoperative critical care management 04/09/2024.
CAD with a history of stents and preoperative preserved EF
Status post MURL-Mmme-CHR, GSV-OM1 to OM3, GSV to PDA--Dr. Paul 04/09/2024
Pulmonary nodule-10 mm groundglass nodule in the lingula-incidentally noted 03/28/2024
Conditions present prior to admission:
Hypertension
Hyperlipidemia
CAD with history of stent
Gallstone
Plan
Tolerated extubation
Wean FiO2
Encourage incentive spirometry
Increase activity
Aspiration precautions
Pulmonary artery catheter and arterial line will be removed
Pressors have been weaned
Continue to monitor chest tube output
Follow hemoglobin
Continue to follow platelet count and coags
Transfuse blood product as needed
CT surgery following chest tubes as well
Follow blood sugar
Insulin supplementation continues as needed
Early nutrition
Early mobilization
DVT prophylaxis
Patient will be transferred to telemetry phase-call pulmonary if respiratory issues arise
Recommend outpatient pulmonary follow-up with pulmonary nodule-repeat CT chest 03/2025
Reviewed the patient's pertinent medical records including radiographs, microbiology, laboratory evaluations, and discussion with primary team, and critical care nursing.
Diagnostic data:
CT chest 01/07/2011-no evidence for thoracic aortic aneurysm
CT chest 03/28/2024-moderate amount of high attenuation along the coronary arteries could represent calcified plaque stents, mild ascending aortic ectasia 3.7 cm, 10 mm groundglass nodule in the lingula recommend follow-up in 6 to 12 months,
cholelithiasis with 4 mm gallstone
Echocardiogram 03/28/2024-EF 57%, normal diastolic function
Cardiac catheterization 03/06/2024-multivessel CAD with 100% of the mid RCA, high-grade nondilated both stenosis OM 3 and OM1 has an 80% ostial stenosis and a 50 to 60% proximal LAD stenosis with preserved EF
Spirometry 04/05/2024-FEV1 2.9 L - 111%, FVC 3.9-112%
Subjective Dataa
Subjective Data
Date of Service:
Date of Service: April 10, 2024
Chief Complaint: Curriculum Development Coordinator Follow Up, Pulmonary Follow Up and Vent Management Follow Up
Subjective:
Tolerated extubation, confused, no complaints of shortness of breath, pain controlled, No significant chest tube drainage
Review of Systems
General: Other (Per HPI)
Objective Data
Data Reviewed
Vital Signs / I&O / Oxygen:
Vital Signs
Temp Pulse Resp BP Pulse Ox
99.2 F 83 17 111/64 96
04/10/24 04:00 04/10/24 06:05 04/10/24 05:25 04/10/24 05:20 04/10/24 04:22
Intake and Output
04/09/24 04/10/24 04/11/24
06:59 06:59 06:59
Intake Total 879.3 / 890.1 10.8 / 10.8
Output Total 1460 / 1590 130 / 130
Balance -580.7 / -699.9 -119.2 / -119.2
SaO2 [CPAP] 98
SaO2 [SIMV] 99
SaO2 96
Nasal Cannula flow liters per 2
minute
Physical Exam
General: Respiratory Distress and Comfortable
HEENT: Normocephalic, Anicteric and Moist Mucous Membranes
Cardiovascular: Regular Rhythm
Respiratory: Wheeze (n), Crackles, Rhonchi, Non-Labored Respirations, Accessory Resp Muscle Use (n) and Stridor (n)
GI: Soft, Non Distended and Non Tender
Neurology: Awake, Alert and Other (Confused)
Skin: Warm, Good Color, Cyanosis (n) and Jaundice (n)
Labs/Micro/Reports
Lab Data
04/10/24 03:28
04/10/24 03:28
Laboratory Results
04/09/24 04/09/24
13:13 15:20
PT 18.2 H
INR 1.48
APTT 29.4
pH 7.44 7.38
pCO2 38 39
pO2 168 H 109 H
HCO3 25.8 23.1
O2 Delivery Level
[2024-04-10] MEDS: LIPITOR 40 MG PO (08:42)
[2024-04-10] MEDS: PLAVIX 75 MG PO (08:42)
[2024-04-10] MEDS: PACERONE 200 MG PO ×3 (08:42→21:00)
[2024-04-10] MEDS: SENOKOT-S 1 TABLET PO ×2 (08:42→20:11)
[2024-04-10] MEDS: PROTONIX 40 MG PO (08:42)
[2024-04-10] MEDS: VITAMIN C 500 MG PO (08:42)
[2024-04-10] MEDS: MAGNESIUM OXIDE 500 MG PO ×2 (08:42→20:11)
[2024-04-10] MEDS: FEOSOL 325 MG PO (08:42)
[2024-04-10] MEDS: BACTROBAN 2% OINTMENT 1 APPLIC NASAL ×2 (08:43→20:12)
[2024-04-10] MEDS: LOW STRENGTH ASPIRIN 81 MG PO (08:43)
[2024-04-10] MEDS: NEURONTIN PO (08:43)
[2024-04-10] MEDS: LOPRESSOR 25 MG PO ×2 (08:45→20:11)
[2024-04-10 09:00] LABS: Glucose - Point of Care 122 mg/dl (70-99)
--- NOTE | 2024-04-10 09:28 | PTCARENOTE ---
Received pt from formula clerk RN; pt AAOx2 confused/disoriented, pt stating 'I wanna get out of this place and go to my other hospital.' CVNP made aware of confusion and at bedside; pt resting comfortably in chair; NSR on monitor and VSS; RIJ Cordis
and PIV x1 patent; Insulin infusing per Glycemic protocol see flow sheet for details; Lungs diminished; IS to 500; CT x4 to -20 wall suction intermittent +1 air leak in pleurals and none in mediastinals and no crepitus noted; hypoactive bowel
sounds; Villa catheter removed by formula clerk RN, pt DTV by 1200; palpable pulses throughout; trace generalized edema; all surgical sites C/D/I; Family at bedside and updated; see nursing documentation for further details.
--- NOTE | 2024-04-10 09:59 | W.PN.ANS.POP ---
Anesthesia Post Operative
- Anesthesia Post Op Note
Vital Signs Stable-See Nursing Note: Yes
Airway Patent: Yes
Adequate Pain Control: Yes
Change in Mental Status: No (pt is a slighty confused and was redirected)
Current Postoperative Nausea & Vomiting: No
Anesthesia Complications: No
General Anesthetic Recall: No
Unplanned Admission: No
Post Op Hydration Adequate: Yes
--- NOTE | 2024-04-10 11:02 | W.PN.CARDCBS ---
Today's Communication / Plan
-
RECOMMENDATIONS:
-will have to find out from family if he was ever started on medication for Parkinson's disease
-I suspect visual hallucinations and auditory hallucinations multifactorial : post anesthesia, Parkinsons, age etc.
-Will follow but seem clinically stable at this time.
Impression / Plan
-
PCP: Dr. Dobbs
Hand Roller: Dr. Adkins
Impression:
CAD
s/p RCA PCI x2 12/24/2010
s/p balloon angioplasty of mid PDA 12/24/2010
unsuccessful PCI of OM 2 01/07/2011
s/p CABG x 4 (CHIQUI to LAD, sGSV to OM1 to OM3, GSV to PDA) 04/09/2024
Hypertension
Hyperlipidemia
Hypothyroidism
Parkinson's disease : Clearly may be part of post anesthesia confusion / hallucination
Post op confusion
Echo 03/28/2024: EF 57%, mild-moderate LVH, mild MR, trace AI, mild TR, estimated PAP 31 mmHg, normal aortic root for body surface area, mildly dilated ascending aorta at 4.0 cm
Plan:
-s/p CABG x 4 (CHIQUI to LAD, sGSV to OM1 to OM3, GSV to PDA) 04/09/[address] Paul.
-I am not sure if Parkinson's disease may be contributing to post op confusional state. I seem to recall that his neurologist wanted to start medications but he did not. Not sure if he was ever started on Sinemet or not
-His confusion seems much better now than noted earlier this am.
-Continue aspirin and plavix
-Continue lipitor 40mg daily
-Will follow
Progress Note - Hand Roller
Subjective
Date of Service: April 10, 2024
Severe confusion / delirium today. Patient states he 'didn't know where I was or why I was here'.
Objective
Labs:
04/10/24 03:28
04/10/24 03:28
Labs
Hgb 11.3 g/dL (13.0-18.0) L 04/10/24 03:28
Hct 33.1 % (39.0-52.0) L 04/10/24 03:28
Plt Count 155 10^3/uL (130-400) 04/10/24 03:28
PT 18.2 Sec (11.4-14.6) H 04/09/24 13:13
INR 1.48 04/09/24 13:13
APTT 29.4 Sec (23.4-35.0) 04/09/24 13:13
Sodium 141 mmol/L (135-145) 04/10/24 03:28
Potassium 4.1 mmol/L (3.5-5.1) 04/10/24 03:28
BUN 22 mg/dl (9-20) H 04/10/24 03:28
Creatinine 0.9 mg/dL (0.7-1.3) 04/10/24 03:28
Glucose 100 mg/dl (70-99) H 04/10/24 03:28
Vital Signs and I&O:
Vital Signs
Temp Pulse Resp BP Pulse Ox
97.9 F 84 20 130/76 95
04/10/24 07:49 04/10/24 08:35 04/10/24 07:49 04/10/24 07:40 04/10/24 10:36
Vital Signs
Temp Pulse Resp BP Pulse Ox
97.9 F 84 20 130/76 95
04/10/24 07:49 04/10/24 08:35 04/10/24 07:49 04/10/24 07:40 04/10/24 10:36
Intake & Output
04/07/24 04/08/24 04/09/24 04/10/24
23:59 23:59 23:59 23:59
Intake Total 747.8 / 769.1 178.3 / 178.3
Output Total 1040 / 1110 665 / 665
Balance -292.2 / -340.9 -486.7 / -486.7
Physical Exam
Physical Exam
Physical exam
GEN: Awake and oriented. Pleasant and conversant. He states that he felt very confused this morning but is feeling better now
HEENT: NC/AT, sclera are anicteric,
LUNGS: Clear to bases bilaterally. No wheezing. Chest tubes in place.
CV: Regular rate and rhythm. Normal S1/S2. Murmur: None
EXT: No CCE
NEURO: Moves extremities x 4. Normal sensation to lite touch hands and feet.
--- NOTE | 2024-04-10 11:41 | PN.CDI ---
CDI
- -
CDI:
Physician Documentation Request
Admit Date: 04/09/24 05:07
Dear Doctor Humberto,
04/09 RD assessment and notes state ' consult for decreased appetite.... CBW (04/09) 195 lbs 12.328oz BMI 28.1 overwt/ht, (04/05) 199 lb Wt per previous admission (03/06) 205 lb 4 oz. Significant 5% weight loss x 1 month.... Pt meets criteria for
moderate protein calorie malnutrition of chronic illnes with documented 5% weight loss x 1 month, and decreased intake over 1 month. '
Based on the above information and your assessment, which of the following most accurately represents the patient's nutritional status?
Moderate Malnutrition
Other (please specify)
Lulu Criteria ([facility]ist 2017)
2 or more criteria must be present for either
non severe or severe malnutrition
Note that the criteria differs related to the
presence of an acute or chronic illness
Acute Illness Chronic Illness
Energy Intake Non Severe: <75% for >7 days Non Severe: <75% for >1 month
Severe: <50% for >5 days Severe: <75% for >1 month
Weight Loss Non Severe: 1-2% over 1 week Non Severe: 5% over 1 month
5% over 1 month 7.5% over 3 months
7.5% over 3 months 10% over 6 months
1 year N/A 20% over 1 year
Severe: >2% over 1 week Severe: >5% over 1 month
>5% over 1 month >7.5% over 3 months
>7.5% over 3 months >10% over 6 months
1 year N/A >20% over 1 year
Body Fat Non Severe: Mild Decrease Non Severe: Mild Loss
Severe: Moderate Decrease Severe: Severe Loss
Muscle Mass Non Severe: Mild Decrease Non Severe: Mild Loss
Severe: Moderate Decrease Severe: Severe Loss
Fluid Accumulation Non Severe: Mild Accumulation Non Severe: Mild Accumulation
Severe: Moderate to severe Severe: Moderate to severe
accumulation accumulation
Reduced Blanket Cutting Machine Operator Strength Non Severe: N/A Non Severe: N/A
Severe: Measurably reduced Severe: Measurably reduced
Use of terms such as suspected, likely, concern for, or probable (associated with a specific diagnosis that is being evaluated, monitored, or treated as if it exists) are acceptable and can be coded in the inpatient setting, when documented at the
time of discharge.
Thank you,
Lo Solis RN, BSN
CDI Specialist
tiger text
Please use your independent medical judgment in providing your response.
[2024-04-10 11:51] LABS: Glucose - Point of Care 109 mg/dl (70-99)
--- NOTE | 2024-04-10 11:59 | PTCARENOTE ---
Assessment unchanged; NSR on monitor and VSS; pt resting comfortably in chair with family at bedside.
[2024-04-10] MEDS: NSS IV (13:01)
[2024-04-10 14:00] LABS: Glucose - Point of Care 105 mg/dl (70-99)
[2024-04-10] MEDS: LASIX 40 MG IV (15:24)
[2024-04-10] MEDS: SINEMET 25-100 1 TABLET PO ×2 (15:42→21:00)
[2024-04-10 17:03] LABS: Glucose - Point of Care 220 mg/dl (70-99)
[2024-04-10] MEDS: NOVOLOG FLEXPEN-MODERATE RESISTANCE 3 UNITS SC (17:15)
--- NOTE | 2024-04-10 17:17 | PTCARENOTE ---
Assessment unchanged; NSR on monitor and VSS; pt resting comfortably in chair with family at bedside.
--- NOTE | 2024-04-10 20:45 | PTCARENOTE ---
Assumed care of pt from dayshift RN. Walking rounds completed. Pt is oriented to person, place, and time. Slow speech. Following commands appropriately. Pt is SR on the tele monitor. HR 70-80s. +Rub. BP 110/67. MAP 81. Palpable pulses throughout.
Trace edema. Pt on 2 L NC. POX 97%. Mediastinal CTx2 and R/L pleural CT's to -20 suction, no air-leak or tidaling at this time, and output WNL. Lung sounds diminished bilaterally. Deep breathing and IS encouraged. Abdomen soft/nontender. +BS. Pt
voiding yellow urine in the urinal w/ assistance. Pt is 2x assist. All surgical sites stable. Right IJ cordis and PIV x1 C/D/I. See worklist for full nursing assessment and interventions. Call luevano within reach.
[2024-04-11] VITALS (10 sets, daily range): BP systolic 91–157; BP diastolic 60–86; PULSE 70; BMI 30.3
--- NOTE | 2024-04-11 00:16 | PTCARENOTE ---
No acute change in assessment. Pt SR on the tele monitor. HR 70s. BP stable. Pt on 2 L NC. POX 98%. CT assessment unchanged from previous. Pt voided in urinal. All surgical sites stable. Pt repositioned in bed. Call luevano within reach.
[2024-04-11 02:21] LABS: Hemoglobin 11.3 g/dL (13.0-18.0); Mean Corp Hgb Conc. 34.2 g/dL (33.0-37.0); Mean Corpuscular Hgb 30.8 pg (27.0-31.0); Mean Corpuscular Volume 89.9 fL (80.0-94.0); Mean Platelet Volume 11.9 fL (7.4-10.4); Platelet Count 179 10^3/uL (130-400); Red Blood Cell Count 3.67 10^6/uL (4.70-6.10); Red Cell Dist. Width 13.3 % (11.5-14.5); White Blood Cell Count 23.2 10^3/uL (4.8-10.8)
--- NOTE | 2024-04-11 02:30 | PTCARENOTE ---
Pt disoriented to place and time of day and is very restless in bed. Attempted to redirect pt. CTPA aware. Pt insisted on speaking to his family on the phone. Family called and pt spoke to them on the phone. Pt remains restless. Denies pain. Labs
drawn and sent.
[2024-04-11 02:47] LABS: Blood Urea Nitrogen 30 mg/dl (9-20); Calcium 8.4 mg/dl (8.4-10.2); Carbon Dioxide 29 mmol/L (22-30); Chloride 101 mmol/L (98-107); Estimated Creatinine Clearance 57 ml/min; Glucose 127 mg/dl (70-99); Potassium 4.1 mmol/L (3.5-5.1); Sodium 137 mmol/L (135-145); eGFR > 60.00
--- NOTE | 2024-04-11 06:16 | W.PN.CT ---
Documented by User: Margarito Arroyo PA-C 04/11/24 06:16
Today's Communication / Plan
-
-pod #2
-pt was A&O x4 initially when his family was at bedside ( and daughter Emma), then got more confused, paranoid, restless, wanted to call his daughter
-getting Tylenol and Toradol for pain. Holding narcs, Gabapentin, Flexeril
-diuresed with 40 iv Lasix on 04/10 (UO 950) - continue
-Lopressor increased to 25 bid- monitor BP
-CT output: 2 meds 60/235, 2 pleur 30/170 in 05/15 hrs
-current meds (ASA, Plavix, Lopressor, Amio, Feosol, Protonix)
-Maintain cordis
-No temporary PW
-Encourage use of IS
-Wean off of O2 as tolerated
-OOB into chair/Ambulate
Assessment / Plan
-
Assessment:
-S/P Median sternotomy/CABG x 4 (CHIQUI to LAD, sGSV to OM1 to OM3, GSV to PDA)/Endoscopic harvest/prep of RLE GSV, by Dr. Paul, 04/09/24, pod#2
-Multivessel CAD
-Hx [place] S/p PCI with overlapping stents x 3 to prox-distal RCA, 12/24/2010
-S/P unsuccessful PCI/Angioplasty of OM2, 01/07/11
-Hypertension
-Hyperlipidemia
-Prediabetes (hgb A1C 5.8)
-Hypothyroidism
-Parkinson's disease
-S/p Appendectomy
-Acute postop blood loss/Anemia (stable without transfusion)
-Acute postop atelectasis
-Acute postop confusion (improving, apparently speaks Nepali prior to surgery but unable to do so initially post surgery, just [place] language of [place]ian)
-Acute postop hypovolemia with subsequent hypervolemia
-Postop EKG suggestive of acute pericarditis (+rub, not in excruciating pain)
Discussed patient care with: Nursing and Care Team
Subjective
Procedure
-S/P Median sternotomy/CABG x 4 (CHIQUI to LAD, sGSV to OM1 to OM3, GSV to PDA)/Endoscopic harvest/prep of RLE GSV, by Dr. Paul, 04/09/24
-
Date of Service: April 11, 2024
Objective Data
-
Lab Results
04/11/24 02:12
04/11/24 02:12
PT 18.2 Sec (11.4-14.6) H 04/09/24 13:13
INR 1.48 04/09/24 13:13
APTT 29.4 Sec (23.4-35.0) 04/09/24 13:13
Vital Signs
Vital Signs
Temp Pulse Resp BP Pulse Ox
97.8 F 80 16 116/75 98
04/11/24 00:06 04/11/24 02:05 04/11/24 00:06 04/11/24 00:06 04/11/24 00:06
CT Intake/Output/Weight
04/10/24 04/10/24 04/11/24
06:59 18:59 06:59
Intake Total 466.2 / 890.1 71.4 / 141.4 70 / 141.4
Output Total 755 / 1590 1265 / 1635 370 / 1635
Balance -288.8 / -699.9 -1193.6 / -1493.6 -300 / -1493.6
SaO2: 98
Physical Exam
-
General: Awake, Oriented and AOx3
Cardiovascular: Regular rate & rhythm, No Murmurs, Rub and No Gallop
Respiratory: Decreased Breath Sounds at bases, few crackles at bases, no wheeze
Sternum: Stable
Incision: Clean, Dry, Intact and Dressing Intact
Abdomen: soft, nondistended, nontender
Extremities: No Edema
Data Reviewed
-
Lab Results: Results Reviewed
Medications: Active Meds Reviewed
Chest X-Ray: Report Reviewed and Image Reviewed
ECG: Report Reviewed and Image Reviewed

Documented by User: [email or web address] Aguirre 04/11/24 10:22
Assessment / Plan
-
Assessment:
-S/P Median sternotomy/CABG x 4 (CHIQUI to LAD, sGSV to OM1 to OM3, GSV to PDA)/Endoscopic harvest/prep of RLE GSV, by Dr. Paul, 04/09/24, pod#2
-Multivessel CAD
-Hx stable angina
-Hx [place] S/p PCI with overlapping stents x 3 to prox-distal RCA, 12/24/2010
-S/P unsuccessful PCI/Angioplasty of OM2, 01/07/11
-Hypertension
-Hyperlipidemia
-Prediabetes (hgb A1C 5.8)
-Hypothyroidism
-Parkinson's disease
-S/p Appendectomy
-Acute postop blood loss/Anemia (stable without transfusion)
-Acute postop atelectasis
-Acute postop encephalopathy likely due to Parkinsons
-Acute postop hypovolemia with subsequent hypervolemia
-Postop EKG suggestive of acute pericarditis (+rub, not in excruciating pain)
[2024-04-11] MEDS: TYLENOL PO (07:27)
[2024-04-11] MEDS: FEOSOL PO (07:27)
--- NOTE | 2024-04-11 08:11 | PN.CDI ---
CDI
- -
CDI:
Physician Documentation Request
Admit Date: 04/09/24 05:07
Dear Doctor Humberto,
Patient is s/p CABG 04/09. 04/10 CT progress notes states 'Acute postop confusion (improving, apparently speaks Japanese prior to surgery but unable to do so initially post surgery, just [place] language of [place])'
04/10 cardiology note states 'I suspect visual hallucinations and auditory hallucinations multifactorial..... Patient states he 'didn't know where I was or why I was here'. '
Based on the above, Could you further specify in the Progress Notes the most likely etiology of the confusion/altered mental status.
Encephalopathy - indicate type, such as metabolic, toxic, septic, alcoholic, anoxic, hypertensive etc. due to a specific condition such as UTI, CVA, hyponatremia etc.
Acute Delirium - indicate known or suspected etiology such as postoperative, due to opioids or other drugs etc. Can also indicate unknown or mixed etiologies.
Other
Use of terms such as suspected, likely, concern for, or probable (associated with a specific diagnosis that is being evaluated, monitored, or treated as if it exists) are acceptable and can be coded in the inpatient setting, when documented at the
time of discharge.
Thank you,
Lo Solis RN, BSN
CDI Specialist
tiger text
Please use your independent medical judgment in providing your response.
--- NOTE | 2024-04-11 08:17 | PN.CDI ---
CDI
- -
CDI:
Physician Documentation Request
Admit Date: 04/09/24 05:07
Dear Doctor Humberto,
Patient is s/p CABG for multivessel CAD. H&P states 'He denies any resting symptomatology, but does report anginal symptoms on physical exertion'
SHARMAINE report list indications '.... Angina pectoris....'
Could you please further specify the patient's angina:
Unstable
Stable
refractory
Other
Use of terms such as suspected, likely, concern for, or probable (associated with a specific diagnosis that is being evaluated, monitored, or treated as if it exists) are acceptable and can be coded in the inpatient setting, when documented at the
time of discharge.
Thank you,
Lo Solis RN, BSN
CDI Specialist
tiger text
Please use your independent medical judgment in providing your response.
[2024-04-11] MEDS: LOW STRENGTH ASPIRIN 81 MG PO (08:26)
[2024-04-11] MEDS: LOPRESSOR 25 MG PO ×2 (08:26→20:56)
[2024-04-11] MEDS: SINEMET 25-100 1 TABLET PO ×3 (08:26→20:56)
[2024-04-11] MEDS: PLAVIX 75 MG PO (08:26)
[2024-04-11] MEDS: PACERONE 200 MG PO ×3 (08:26→20:56)
[2024-04-11] MEDS: BACTROBAN 2% OINTMENT 1 APPLIC NASAL ×2 (08:27→20:56)
[2024-04-11] MEDS: NOVOLOG FLEXPEN-MODERATE RESISTANCE SC ×2 (08:44→17:09)
--- NOTE | 2024-04-11 08:45 | PTCARENOTE ---
Assumed care of patient at 0700. Pt is awake, alert, and oriented to person, place, and time. Pt confused at times, anxious regarding feeling confused. Pt remains SR with HR 80's. BP 123/74 MAP 87. Pulse oximetry 94% on room air. Chest tubes x4 in
place to suction draining serosanguineous drainage, no sign of air leak or crepitus. Pt tolerated PO pills in applesauce. Tolerating diet. Voiding in urinal with assistance. Midsternal incision with post-op dressing in place. Right leg incision
approximated and YOHANNES. Right IJ cordis intact. Pt currently resting with family at bedside.
[2024-04-11 08:47] LABS: Glucose - Point of Care 133 mg/dl (70-99)
[2024-04-11] MEDS: FEOSOL 325 MG PO (10:30)
[2024-04-11] MEDS: MAGNESIUM OXIDE 500 MG PO ×2 (10:30→20:56)
[2024-04-11] MEDS: PROTONIX 40 MG PO (10:30)
[2024-04-11] MEDS: VITAMIN C 500 MG PO (10:30)
[2024-04-11] MEDS: LIPITOR 40 MG PO (10:30)
[2024-04-11] MEDS: SENOKOT-S 1 TABLET PO ×2 (10:30→20:56)
[2024-04-11] MEDS: TORADOL 15 MG IV (11:59)
--- NOTE | 2024-04-11 11:59 | W.PN.CARDCBS ---
Addendum entered and electronically signed by Leonardo Segura DO 04/11/24 18:33:
I saw and examined the patient.
The Certified Corporate Travel Executive's note was reviewed and I agree with the note.
Comment:
Plan:
Cont post op care
Remains sinus
Cont DAPT and statin
Cont to monitor mental status which is improved
Discussed with family at bedside and nursing.
Original Note:
Today's Communication / Plan
-
continue post op care
in SR
follow mental status
Impression / Plan
-
PCP: Dr. Dobbs
Usability Architect: Dr. Adkins
Impression:
CAD
s/p RCA PCI x2 12/24/2010
s/p balloon angioplasty of mid PDA 12/24/2010
unsuccessful PCI of OM 2 01/07/2011
s/p CABG x 4 (CHIQUI to LAD, sGSV to OM1 to OM3, GSV to PDA) 04/09/2024
Hypertension
Hyperlipidemia
Hypothyroidism
Parkinson's disease : Clearly may be part of post anesthesia confusion / hallucination
Post op confusion
Echo 03/28/2024: EF 57%, mild-moderate LVH, mild MR, trace AI, mild TR, estimated PAP 31 mmHg, normal aortic root for body surface area, mildly dilated ascending aorta at 4.0 cm
Plan:
-s/p CABG x 4 (CHIQUI to LAD, sGSV to OM1 to OM3, GSV to PDA) 04/09/[address] Paul.
-confusion appears to be improving, following. avoiding narcotics
-remains in SR upon review of telemetry overnight. continue amio, lopressor
-CTs out
-continue asa, plavix, lipitor.
-continue post op care, OOB/IS
-d/w nursing
-d/w patient and family at bedside
Progress Note - Usability Architect
Subjective
Date of Service: April 11, 2024
reports breathing easier with CTs out
Objective
Labs:
04/11/24 02:12
04/11/24 02:12
Labs
Hgb 11.3 g/dL (13.0-18.0) L 04/11/24 02:12
Hct 33.0 % (39.0-52.0) L 04/11/24 02:12
Plt Count 179 10^3/uL (130-400) 04/11/24 02:12
PT 18.2 Sec (11.4-14.6) H 04/09/24 13:13
INR 1.48 04/09/24 13:13
APTT 29.4 Sec (23.4-35.0) 04/09/24 13:13
Sodium 137 mmol/L (135-145) 04/11/24 02:12
Potassium 4.1 mmol/L (3.5-5.1) 04/11/24 02:12
BUN 30 mg/dl (9-20) H 04/11/24 02:12
Creatinine 1.1 mg/dL (0.7-1.3) 04/11/24 02:12
Glucose 127 mg/dl (70-99) H 04/11/24 02:12
Vital Signs and I&O:
Vital Signs
Temp Pulse Resp BP Pulse Ox
98.9 F 73 18 123/74 94
04/11/24 08:49 04/11/24 11:30 04/11/24 08:49 04/11/24 08:25 04/11/24 09:58
Vital Signs
Temp Pulse Resp BP Pulse Ox
98.9 F 73 18 123/74 94
04/11/24 08:49 04/11/24 11:30 04/11/24 08:49 04/11/24 08:25 04/11/24 09:58
Intake & Output
04/09/24 04/10/24 04/11/24 11/21/24
07:59 07:59 07:59 07:59
Intake Total 890.1 / 900.9 170.6 / 170.6
Output Total 1590 / 1675 1850 / 1850 /
Balance -699.9 / -774.1 -1679.4 / -1679.4 -65 / -65
Physical Exam
Physical Exam
GEN: No distress, awake, alert, oriented x3
HEENT: supple, anicteric, mmm, eomi
LUNGS: CTA B/L, no wheezes/rales
CV: Reg, S1/S2, no murmur
ABD: soft, BS+, NT/ND
EXT: No cyanosis, clubbing, edema
NEURO: Gross non-focal
SKIN: Warm, pink, dry. No rash. Sternotomy dressing c/d/i
[2024-04-11] MEDS: ZOFRAN 4 MG IV (12:34)
[2024-04-11] MEDS: NSS IV (12:36)
[2024-04-11] MEDS: NOVOLOG FLEXPEN-MODERATE RESISTANCE 1 UNITS SC (12:55)
[2024-04-11 13:03] LABS: Glucose - Point of Care 163 mg/dl (70-99)
--- NOTE | 2024-04-11 13:36 | PTCARENOTE ---
Chest tubes x4 pulled per order. Pt ambulated with PT/OT. Now OOB in chair with daughter at bedside. Pt remains SR with HR 70's. BP 123/70 MAP 84.
--- NOTE | 2024-04-11 14:30 | CM ---
CM following for DC planning needs.
Met w/ spouse, dtrs. at bedside. Pt. was sleeping. Pt. is POD#[address] Surgery.
Per family, patient has been having episodes of paranoia, which is not his baseline and is concerning to them. Emotional support provided.
Anticipate DC to home w/ CT Transitional Care RN once medically stable.
Will follow closely.
[2024-04-11] MEDS: TYLENOL 1000 MG PO ×2 (15:16→20:56)
--- NOTE | 2024-04-11 16:08 | PTCARENOTE ---
Pt had formed BM on bedside commode. Pt OOB in chair tolerated well. Now back in bed to rest. Pt remains SR with HR 80's. BP 101/60 MAP 72. Pulse oximetry 93% on room air.
[2024-04-11 17:08] LABS: Glucose - Point of Care 133 mg/dl (70-99)
--- NOTE | 2024-04-11 20:00 | PTCARENOTE ---
PT AAO to person & place. no complaints of pain, NS on monitor VSS, 2L NC at night for comfort, GI passing gas, using urinal, all surgical sights CDI, RIJC and PIV wnl. see worklist for detailed assessment
[2024-04-11] MEDS: MELATONIN 3 MG PO (21:12)
[2024-04-12] VITALS (14 sets, daily range): BP systolic 100–155; BP diastolic 58–106; PULSE 70–74; O2SAT 94–96; BMI 29.6
--- NOTE | 2024-04-12 | PTCARENOTE ---
PT increased adgitation w/ change of mental ststus. AAOx1 to self, able to be reoriented. see worklist for detailed assessmrent
[2024-04-12 03:42] LABS: Hematocrit 30.7 % (39.0-52.0); Hemoglobin 10.3 g/dL (13.0-18.0); Mean Corp Hgb Conc. 33.6 g/dL (33.0-37.0); Mean Corpuscular Hgb 29.9 pg (27.0-31.0); Mean Platelet Volume 11.4 fL (7.4-10.4); Platelet Count 153 10^3/uL (130-400); Red Blood Cell Count 3.45 10^6/uL (4.70-6.10); Red Cell Dist. Width 13.2 % (11.5-14.5); White Blood Cell Count 14.5 10^3/uL (4.8-10.8)
[2024-04-12 04:09] LABS: Blood Urea Nitrogen 25 mg/dl (9-20); Calcium 8.2 mg/dl (8.4-10.2); Carbon Dioxide 30 mmol/L (22-30); Chloride 103 mmol/L (98-107); Estimated Creatinine Clearance 79 ml/min; Glucose 119 mg/dl (70-99); Sodium 141 mmol/L (135-145); eGFR > 60.00
--- NOTE | 2024-04-12 05:00 | PTCARENOTE ---
PT AAOx4 fully reoriented after 3 hours of sleep. no other changes form previous assessment.
--- NOTE | 2024-04-12 06:15 | W.PN.CT ---
Today's Communication / Plan
-
-pod #3
-A&Ox4 tonight, calmer, less paranoid. at bedside, says that at home pt takes naps during the day and has trouble sleeping at night. Gave low-dose Melatonin
-avoid narcs, benzos or Flexeril. Tylenol and Toradol for pain
-weaned off O2 - pOx 95% on RA
-current meds (ASA, Plavix, Lopressor, Amio, Feosol, Protonix)
-follow 2v-CXR
-possible d/c soon
-encourage IS
Assessment / Plan
-
Assessment:
-S/P Median sternotomy/CABG x 4 (CHIQUI to LAD, sGSV to OM1 to OM3, GSV to PDA)/Endoscopic harvest/prep of RLE GSV, by Dr. Paul, 04/09/24, pod#3
-Multivessel CAD
-Hx stable angina
-Hx [place] S/p PCI with overlapping stents x 3 to prox-distal RCA, 12/24/2010
-S/P unsuccessful PCI/Angioplasty of OM2, 01/07/11
-Hypertension
-Hyperlipidemia
-Prediabetes (hgb A1C 5.8)
-Hypothyroidism
-Parkinson's disease
-S/p Appendectomy
-Acute postop blood loss/Anemia (stable without transfusion)
-Acute postop atelectasis
-Acute postop encephalopathy likely due to Parkinsons
-Acute postop hypovolemia with subsequent hypervolemia
-Postop EKG suggestive of acute pericarditis (+rub, not in excruciating pain)
Discussed patient care with: Nursing and Care Team
Subjective
Procedure
-S/P Median sternotomy/CABG x 4 (CHIQUI to LAD, sGSV to OM1 to OM3, GSV to PDA)/Endoscopic harvest/prep of RLE GSV, by Dr. Paul, 04/09/24
-
Date of Service: April 12, 2024
Objective Data
-
PT 18.2 Sec (11.4-14.6) H 04/09/24 13:13
INR 1.48 04/09/24 13:13
APTT 29.4 Sec (23.4-35.0) 04/09/24 13:13
Vital Signs
Vital Signs
Temp Pulse Resp BP Pulse Ox
98.5 F 77 18 146/86 95
04/11/24 23:19 04/11/24 23:19 04/11/24 23:19 04/11/24 22:31 04/11/24 19:21
CT Intake/Output/Weight
04/11/24 04/11/24 04/12/24
06:59 18:59 06:59
Intake Total 110 / 181.4 30 / 270 240 / 270
Output Total 715 / 1980 495 / 1045 550 / 1045
Balance -605 / -1798.6 -465 / -775 -310 / -775
SaO2: 95
Physical Exam
-
General: Awake and AOx3
Cardiovascular: Regular rate & rhythm and No Murmurs
Respiratory: Decreased Breath Sounds
Sternum: Stable
Incision: Clean, Dry and Intact
Extremities: No Edema (2+ DPs b/l)
Abdomen: soft, nontender, nondistended, + bowel sounds
Data Reviewed
-
Lab Results: Results Reviewed
Medications: Active Meds Reviewed
Chest X-Ray: Report Reviewed and Image Reviewed
ECG: Report Reviewed and Image Reviewed
[2024-04-12] MEDS: TYLENOL PO (07:17)
[2024-04-12 07:47] LABS: Glucose - Point of Care 113 mg/dl (70-99)
[2024-04-12] MEDS: NOVOLOG FLEXPEN-MODERATE RESISTANCE SC ×2 (07:48→12:04)
[2024-04-12] MEDS: BACTROBAN 2% OINTMENT 1 APPLIC NASAL ×2 (08:05→19:33)
[2024-04-12] MEDS: PLAVIX 75 MG PO (08:06)
[2024-04-12] MEDS: LIPITOR 40 MG PO (08:06)
[2024-04-12] MEDS: LOW STRENGTH ASPIRIN 81 MG PO (08:06)
[2024-04-12] MEDS: PROTONIX 40 MG PO (08:06)
[2024-04-12] MEDS: VITAMIN C 500 MG PO (08:06)
[2024-04-12] MEDS: LASIX 40 MG IV (08:06)
[2024-04-12] MEDS: MAGNESIUM OXIDE 500 MG PO ×2 (08:06→19:33)
[2024-04-12] MEDS: SINEMET 25-100 1 TABLET PO ×3 (08:07→21:06)
[2024-04-12] MEDS: SENOKOT-S 1 TABLET PO ×2 (08:07→19:33)
[2024-04-12] MEDS: LOPRESSOR 25 MG PO ×2 (08:07→19:33)
[2024-04-12] MEDS: PACERONE 200 MG PO ×3 (08:07→21:06)
--- NOTE | 2024-04-12 08:43 | PTCARENOTE ---
Patient received from cage shift manager resting oob in chair, AAO X 3 at this time. at bedside. NSR via cm, SaO2 @ 95% on RA. CHAVA Alcala present. All procedural sites stable. Patient and spouse updated to plan of care for the day, in agreement. See
work list for full assessment and interventions performed.
--- NOTE | 2024-04-12 08:51 | W.PN.CARDCBS ---
Today's Communication / Plan
-
Cont post op care
Remains sinus
Mental status improved
Cont DAPT
Impression / Plan
-
PCP: Dr. Dobbs
Locker Plant Attendant: Dr. Adkins
Impression:
CAD
s/p RCA PCI x2 12/24/2010
s/p balloon angioplasty of mid PDA 12/24/2010
unsuccessful PCI of OM 2 01/07/2011
s/p CABG x 4 (CHIQUI to LAD, sGSV to OM1 to OM3, GSV to PDA) 04/09/2024
Hypertension
Hyperlipidemia
Hypothyroidism
Parkinson's disease : Clearly may be part of post anesthesia confusion / hallucination
Post op confusion
Echo 03/28/2024: EF 57%, mild-moderate LVH, mild MR, trace AI, mild TR, estimated PAP 31 mmHg, normal aortic root for body surface area, mildly dilated ascending aorta at 4.0 cm
Plan:
-s/p CABG x 4 (CHIQUI to LAD, sGSV to OM1 to OM3, GSV to PDA) 04/09/[address] Paul.
Cont post op care
Remains sinus. Cont amiodarone and beta silva.
Cont DAPT and statin
Cont to monitor mental status which is improved
Discussed with family at bedside and nursing.
Progress Note - Locker Plant Attendant
Subjective
Date of Service: April 12, 2024
Pt seen and examined. No cp or dyspnea.
Objective
Labs:
04/12/24 03:16
04/12/24 03:16
Labs
Hgb 10.3 g/dL (13.0-18.0) L 04/12/24 03:16
Hct 30.7 % (39.0-52.0) L 04/12/24 03:16
Plt Count 153 10^3/uL (130-400) 04/12/24 03:16
PT 18.2 Sec (11.4-14.6) H 04/09/24 13:13
INR 1.48 04/09/24 13:13
APTT 29.4 Sec (23.4-35.0) 04/09/24 13:13
Sodium 141 mmol/L (135-145) 04/12/24 03:16
Potassium 4.0 mmol/L (3.5-5.1) 04/12/24 03:16
BUN 25 mg/dl (9-20) H 04/12/24 03:16
Creatinine 0.9 mg/dL (0.7-1.3) 04/12/24 03:16
Glucose 119 mg/dl (70-99) H 04/12/24 03:16
Vital Signs and I&O:
Vital Signs
Temp Pulse Resp BP Pulse Ox
98.3 F 69 17 123/80 95
04/12/24 07:52 04/12/24 08:38 04/12/24 07:52 04/12/24 08:07 04/12/24 07:52
Vital Signs
Temp Pulse Resp BP Pulse Ox
98.3 F 69 17 123/80 95
04/12/24 07:52 04/12/24 08:38 04/12/24 07:52 04/12/24 08:07 04/12/24 07:52
Intake & Output
04/10/24 04/11/24 04/12/24 04/13/24
06:59 06:59 06:59 06:59
Intake Total 879.3 / 890.1 181.4 / 181.4 270 / 270 270 / 270
Output Total 1460 / 1590 1979 / 1979 1545 / 1545 250 / 250
Balance -580.7 / -699.9 -1798.6 / -1798.6 -1275 / -1275
Physical Exam
Physical Exam
General: No acute distress, AAOX3
Neck: Negative JVD
Heart: Regular, Negative S3 positive S1/S2, Negative S4, No murmur
Lungs: CTA b/l, negative wheezes/rales/rhonchi
Abd: Positive BS, NT/ND, neg rebound/rigidity/guarding
Ext: Negative cyanosis/clubbing/edema
Neuro: nonfocal
[2024-04-12 11:56] LABS: Glucose - Point of Care 139 mg/dl (70-99)
--- NOTE | 2024-04-12 11:59 | PTCARENOTE ---
VS obtained, assessment stable. Cordis d/c'd, patient tolerated well. Assisted oob to bathroom, voided. Settled to chair for lunch, daughters at bedside.
[2024-04-12] MEDS: NSS IV (12:04)
[2024-04-12] MEDS: TYLENOL 1000 MG PO ×2 (13:40→21:06)
--- NOTE | 2024-04-12 14:36 | PTCARENOTE ---
assumed care of pt from previous shift RN, sinus rhythm on tele, VSS, +peripheral pulses, +1 edema to bilateral lower extremities. Lungs diminished, pox 95% on RA, coughing and deep breathing encouraged. +bs, tolerating PO intake, voids
spontaneously. Surgical sites stable. PIV flushes easily. Pain well controlled. Assisted pt w walk in hallway. Plan of care reviewed and questions encouraged.
--- NOTE | 2024-04-12 15:05 | CM ---
CM following for DC planning needs.
Attempted to meet w/ patient, family today but patient sleeping-did not disturb.
DC plan remains for home w/ CT Transitional Care RN but will continue to follow progress in therapy.
Will cont. to follow.
--- NOTE | 2024-04-12 20:00 | PTCARENOTE ---
Assumed care of the patient at 1900. Patient OOB in the chair, family at bedside. AOx3, no c/o pain. NSR on the monitor rate 70's, heart sounds regular but distant on auscultation, trace nonpitting B/L lower extremity edema, + pulses throughout. On
RA, lungs clear, IS to 750, teaching regarding proper use reinforced. Patient ambulated in the alvarez with a walker, no SOB, HR post exercise 80's. Attempted to have a BM in the restroom but only passed flatus, +BS, ate 75% of his dinner. Voids
spontaneously in the toilet/urinal. Midsternal Aquacell intact, CTx4 sutures intact RADIATION OFFICER, R groin site ecchymotic with Dermabond CDI, RIJ Cordis site dressing CDI. Family reported feelings of anxiety regarding previous confusion this hospitalization,
therapeutic communication utilized to assuage concerns. Patient settled into bed, reported feeling comfortable, call luevano within reach. Assessment of needs ongoing.
[2024-04-12] MEDS: MELATONIN 5 MG PO (21:06)
[2024-04-13] VITALS (45 sets, daily range): BP systolic 73–146; BP diastolic 50–94; PULSE 77–80; BMI 29.7
--- NOTE | 2024-04-13 00:13 | PTCARENOTE ---
Addendum entered by Agustina Hanna RN 04/13/24 00:17:
CVPA aware
Original Note:
Patient found OOB near sofa in his room, talking to his . Patient directed back to bed, VS taken,see worklist. Patient confused, forgot he is in the hospital. Reoriented patient, assisted with the urinal, voided without difficulty. Bed alarm
set, call luevano within reach, instructed the patient to call for assistance and reinforced sternal precautions.
--- NOTE | 2024-04-13 01:37 | PTCARENOTE ---
Patient awake and disoriented, becoming increasingly agitated. Converted to afib at 0136 rates up to 150, sustained in 120-130's. CVPA aware, new IV started, metoprolol IV administered, Amio bolus and gtt ordered. Patient unable to be reoriented at
this time, repeatedly asking about going home. at bedside updated by CVPA regarding dysrhythmia. Bed alarm maintained, call luevano within reach.
[2024-04-13] MEDS: LOPRESSOR 5 MG IV (01:48)
[2024-04-13] MEDS: CORDARONE 103 MG IV (02:10)
--- NOTE | 2024-04-13 02:15 | PTCARENOTE ---
Addendum entered by Agustina Hanna RN 04/13/24 03:25:
Patient c/o unspecified pain and then burning at the meatus. Given Toradol and urojet ordered by CVWV for relief.
Original Note:
Pt c/o pressure in his bladder after voiding. Some dribbling/incontinence. Bladder scanned for PVR 321.
[2024-04-13] MEDS: CORDARONE 518 MG IV (02:29)
[2024-04-13] MEDS: FLOMAX 0.4 MG PO (03:01)
[2024-04-13] MEDS: TORADOL 15 MG IV (03:01)
--- NOTE | 2024-04-13 04:00 | PTCARENOTE ---
Addendum entered by Agustina Hanna RN 04/13/24 04:38:
Amoi gtt placed on standby per CVPA at 0420
Original Note:
Patient continues to be altered. Converted back to NSR rate 60's at 0356. Pressures subsequently low, see flowsheet for details. 250 LR bolus administered, BP still 80/57 10 mins post administration, CVPA aware. Patient drowsy, CXR completed, per
CVPA hold off on urojet d/t patient c/o burning in urethral meatus, awaiting next spontaneous void for clean catch to send for testing. at bedside, updated.
[2024-04-13 04:13] LABS: Glucose - Point of Care 129 mg/dl (70-99)
[2024-04-13] MEDS: LR 250 IV (04:20)
[2024-04-13 04:38] LABS: Hematocrit 29.9 % (39.0-52.0); Hemoglobin 10.2 g/dL (13.0-18.0); Mean Corp Hgb Conc. 34.1 g/dL (33.0-37.0); Mean Corpuscular Hgb 30.4 pg (27.0-31.0); Mean Corpuscular Volume 89.3 fL (80.0-94.0); Mean Platelet Volume 11.2 fL (7.4-10.4); Platelet Count 161 10^3/uL (130-400); Red Blood Cell Count 3.35 10^6/uL (4.70-6.10); Red Cell Dist. Width 13.2 % (11.5-14.5); White Blood Cell Count 10.7 10^3/uL (4.8-10.8)
[2024-04-13 04:49] LABS: D-Dimer 0.79 ug/mlFEU (0.00-0.50)
[2024-04-13 04:51] LABS: Blood Urea Nitrogen 21 mg/dl (9-20); Calcium 8.2 mg/dl (8.4-10.2); Carbon Dioxide 32 mmol/L (22-30); Chloride 103 mmol/L (98-107); Estimated Creatinine Clearance 70 ml/min; Glucose 112 mg/dl (70-99); Magnesium 1.9 mg/dl (1.6-2.3); Potassium 3.6 mmol/L (3.5-5.1); Sodium 140 mmol/L (135-145); eGFR > 60.00
[2024-04-13] MEDS: TYLENOL 1000 MG PO ×3 (05:34→22:54)
[2024-04-13] MEDS: FEOSOL 325 MG PO (05:34)
[2024-04-13] MEDS: Pyridium 200 MG PO (05:38)
[2024-04-13 06:21] LABS: Urine Albumin Trace (Neg - Trace); Urine Bilirubin Negative (Negative); Urine Character Clear (Clear); Urine Color Yellow; Urine Glucose Negative (Negative); Urine Ketone Negative (Negative); Urine Leukocyte Negative (Negative); Urine Nitrite Negative (Negative); Urine Occult Blood Negative (Negative); Urine Specific Gravity 1.015 (<1.030); Urine Urobilinogen Negative (Neg - 1+)
--- NOTE | 2024-04-13 06:26 | PTCARENOTE ---
D-dimer elevated to 0.79, Hgb stable, CVPA notified. UA sent. Patient sleeping, sitting at bedside. Bed alarm on, call luevano within reach.
--- NOTE | 2024-04-13 06:35 | W.PN.CT ---
Today's Communication / Plan
-
-pod#4
-went into a-fib 120s at 1:30 am - tx with iv Lopressor, iv Amio bolus and gtt- converted to nsr at 4 am
-c/o urinary burning/ retention - tx with Pyridium, Flomax, UA pending
-hypotension 80s-90s this am - improved with 250 LR. Amio drip stopped once in nsr d/t low BP. Holding BB this am
-encourage IS, OOB, ambulate
Assessment / Plan
-
Assessment:
-S/P Median sternotomy/CABG x 4 (CHIQUI to LAD, sGSV to OM1 to OM3, GSV to PDA)/Endoscopic harvest/prep of RLE GSV, by Dr. Paul, 04/09/24, pod#4
-Multivessel CAD
-Hx stable angina
-Hx [place] S/p PCI with overlapping stents x 3 to prox-distal RCA, 12/24/2010
-S/P unsuccessful PCI/Angioplasty of OM2, 01/07/11
-Hypertension
-Hyperlipidemia
-Prediabetes (hgb A1C 5.8)
-Hypothyroidism
-Parkinson's disease
-S/p Appendectomy
-Acute postop blood loss/Anemia (stable without transfusion)
-Acute postop atelectasis
-Acute postop encephalopathy likely due to Parkinsons
-Acute postop hypovolemia with subsequent hypervolemia
-Postop EKG suggestive of acute pericarditis (+rub, not in excruciating pain)
-Acute postop a-fib 120s at 1:30 am - tx with iv Lopressor, iv Amio bolus and gtt- converted to nsr at 4 am
-Acute postop urinary burning/ retention - tx with Pyridium, Flomax, UA pending
-Acute postop hypotension 04/13 - improved with 250 LR
Discussed patient care with: Nursing and Care Team
Subjective
Procedure
-S/P Median sternotomy/CABG x 4 (CHIQUI to LAD, sGSV to OM1 to OM3, GSV to PDA)/Endoscopic harvest/prep of RLE GSV, by Dr. Paul, 04/09/24
-
Date of Service: April 13, 2024
Objective Data
-
Lab Results
04/13/24 04:30
04/13/24 04:30
PT 18.2 Sec (11.4-14.6) H 04/09/24 13:13
INR 1.48 04/09/24 13:13
APTT 29.4 Sec (23.4-35.0) 04/09/24 13:13
Vital Signs
Vital Signs
Temp Pulse Resp BP Pulse Ox
98.3 F 66 17 105/65 98
04/13/24 04:00 04/13/24 05:40 04/13/24 00:04 04/13/24 05:40 04/13/24 05:40
CT Intake/Output/Weight
04/12/24 04/12/24 04/13/24
06:59 18:59 06:59
Intake Total 240 / 270 470 / 809.7 339.7 / 809.7
Output Total 1050 / 1545 1200 / 1915 715 / 1915
Balance -810 / -1275 -730 / -1105.3 -375.3 / -1105.3
SaO2: 98
Physical Exam
-
General: Awake and AOx3
Cardiovascular: Regular rate & rhythm and No Murmurs
Respiratory: Clear and Decreased Breath Sounds
Sternum: Stable
Incision: Clean, Dry and Dressing Intact
Extremities: No Edema
Abdomen: soft, nontender, nondistended, + BM
Data Reviewed
-
Lab Results: Results Reviewed
Medications: Active Meds Reviewed
Chest X-Ray: Report Reviewed and Image Reviewed
ECG: Report Reviewed and Image Reviewed
[2024-04-13] MEDS: LOW STRENGTH ASPIRIN 81 MG PO (08:24)
[2024-04-13] MEDS: MAGNESIUM OXIDE 500 MG PO ×2 (08:24→20:26)
[2024-04-13] MEDS: BACTROBAN 2% OINTMENT 1 APPLIC NASAL (08:24)
[2024-04-13] MEDS: SENOKOT-S 1 TABLET PO ×2 (08:24→20:26)
[2024-04-13] MEDS: PROTONIX 40 MG PO (08:24)
[2024-04-13] MEDS: PLAVIX 75 MG PO (08:24)
[2024-04-13] MEDS: SINEMET 25-100 1 TABLET PO ×3 (08:26→22:54)
[2024-04-13] MEDS: VITAMIN C 500 MG PO (08:26)
[2024-04-13] MEDS: LIPITOR 40 MG PO (08:26)
[2024-04-13] MEDS: PACERONE 200 MG PO ×4 (08:30→22:54)
[2024-04-13] MEDS: NSS IV (09:45)
[2024-04-13] MEDS: LOPRESSOR 25 MG PO (10:00)
--- NOTE | 2024-04-13 11:36 | W.PN.CARDCBS ---
Addendum entered and electronically signed by Wero Gay MD 04/13/24 11:51:
I saw and examined the patient.
The Software Tools Engineer's note was reviewed and I agree with the note.
Comment:
GEN: No distress, awake
HEENT: supple, anicteric, mmm
LUNGS: CTA, no wheezes/rales
CV: Reg, S1/S2, /6 syst LSB, no gallop
ABD: soft, BS+, NT/ND
EXT: No edema
NEURO: Gross non-focal
SKIN: sternotomy
Plan:
back in sinus rhythm. Continue amiodarone and metoprolol.
Will continue aspirin and Plavix for now. If he has further A-fib we will consider full anticoagulation but with his gait issues and Parkinson's disease would use aspirin and Plavix for now.
Creatinine is normal.
Original Note:
Today's Communication / Plan
-
continue post op care
follow mental status
back in SR. monitor for recurrent afib. continue BB/amio
Impression / Plan
-
PCP: Dr. Dobbs
Dermatology Physician Assistant: Dr. Adkins
Impression:
CAD
s/p RCA PCI x2 12/24/2010
s/p balloon angioplasty of mid PDA 12/24/2010
unsuccessful PCI of OM 2 01/07/2011
s/p CABG x 4 (CHIQUI to LAD, sGSV to OM1 to OM3, GSV to PDA) 04/09/2024
Hypertension
Hyperlipidemia
Hypothyroidism
Parkinson's disease: may be part of post anesthesia confusion / hallucination
Post op confusion
Echo 03/28/2024: EF 57%, mild-moderate LVH, mild MR, trace AI, mild TR, estimated PAP 31 mmHg, normal aortic root for body surface area, mildly dilated ascending aorta at 4.0 cm
Plan:
-s/p CABG x 4 (CHIQUI to LAD, sGSV to OM1 to OM3, GSV to PDA) 04/09/[address] Paul.
-emotionally labile. tearful at times. family at bedside. he had some post op confusion which did clear. he has Parkinson's disease
-had ~2 hours of afib overnight, back in SR this morning. continue BB, amio and follow on tele. if were to recur, would need to discuss risk vs benefit of OAC
-continue DAPT, statin
-continue post op care
-d/w nursing
Progress Note - Dermatology Physician Assistant
Subjective
Date of Service: April 13, 2024
remains tearful at times, still confused at times as well
Objective
Labs:
04/13/24 04:30
04/13/24 04:30
Labs
Hgb 10.2 g/dL (13.0-18.0) L 04/13/24 04:30
Hct 29.9 % (39.0-52.0) L 04/13/24 04:30
Plt Count 161 10^3/uL (130-400) 04/13/24 04:30
PT 18.2 Sec (11.4-14.6) H 04/09/24 13:13
INR 1.48 04/09/24 13:13
APTT 29.4 Sec (23.4-35.0) 04/09/24 13:13
Sodium 140 mmol/L (135-145) 04/13/24 04:30
Potassium 3.6 mmol/L (3.5-5.1) 04/13/24 04:30
BUN 21 mg/dl (9-20) H 04/13/24 04:30
Creatinine 0.9 mg/dL (0.7-1.3) 04/13/24 04:30
Glucose 112 mg/dl (70-99) H 04/13/24 04:30
Vital Signs and I&O:
Vital Signs
Temp Pulse Resp BP Pulse Ox
98.5 F 82 16 109/67 96
04/13/24 07:41 04/13/24 10:00 04/13/24 07:41 04/13/24 10:00 04/13/24 07:53
Vital Signs
Temp Pulse Resp BP Pulse Ox
98.5 F 82 16 109/67 96
04/13/24 07:41 04/13/24 10:00 04/13/24 07:41 04/13/24 10:00 04/13/24 07:53
Intake & Output
04/11/24 04/12/24 04/13/24 04/14/24
07:59 07:59 07:59 07:59
Intake Total 170.6 / 170.6 270 / 270 809.7 / 809.7 250 / 250
Output Total 1850 / 1850 1545 / 1545 1915 / 1915
Balance -1679.4 / -1679.4 -1275 / -1275 -1105.3 / -1105.3 250 / 250
Physical Exam
Physical Exam
GEN: No distress, awake, alert, oriented x2. sitting in chair. tearful at times
HEENT: supple, anicteric, mmm, eomi
LUNGS: CTA B/L, no wheezes/rales
CV: Reg, S1/S2, no murmur
ABD: soft, BS+, NT/ND
EXT: No cyanosis, clubbing, edema
NEURO: Gross non-focal
SKIN: Warm, pink, dry. No rash. Sternotomy with dressing c/d/i
--- NOTE | 2024-04-13 12:00 | PTCARENOTE ---
resumed care of patient from prev RN. remains in SR. VSS. RA. walking in room and halls with walker. stable. needs frequent reiteration on what we are doing and what medications he is on. otherwise cooperative. will continue to monitor.
--- NOTE | 2024-04-13 13:30 | CM ---
Addendum entered by RAMY Taylor 04/13/24 14:48:
Pt. has RW available from his family. Otherwise, they will picker tender helper a rolling walker at a local DME supply.
Plan: HOME w/ CT Transitional Care RN.
Original Note:
CM following for DC planning needs.
Met w/ patient and family at bedside.
Pt. quite tearful; wants to go home. Much emotional support provided.
DC plan is for home w/ [facility] Transitional Care RN. Pt. will need a rolling walker. Obtained RX. Will need to order RW for home delivery; PT cannot provide as they do not have contract w/ patient's insurance co.
Will cont. to follow.
--- NOTE | 2024-04-13 15:23 | PTCARENOTE ---
walking halls with family. very steady on feet. remains confused. seemingly paranoid about his medications. very worried about us knowing his medications and times he gets them, wants to go over them with me over and over. emotional support provided
--- NOTE | 2024-04-13 20:15 | PTCARENOTE ---
Patient received OOB in chair. Patient's daughter at bedside. Patient awake and alert x2. Forgetful to time. Calm and cooperative with care. No c/o pain or discomfort. Room air. SpO2 97%. Four chest tube sutures - Intact and open to air.
Sinus Rhythm. Heart rate 70-80's. No c/o chest pain, pressure or discomfort. Normoactive bowel sounds. No c/o nausea. No vomiting. Voiding. Patient ambulates with assist x1 and use of rolling walker. Sternal precautions. Sternal dressing
intact. Right groin puncture and right knee incision intact and open to air. Positive, palpable pulses. Assessment as documented.
[2024-04-13] MEDS: TOPROL XL 25 MG PO (20:26)
--- NOTE | 2024-04-13 22:45 | PTCARENOTE ---
Patient's daughter went home for night. Patient began to get increasingly agitated and impulsive. Difficult to calm and console. Ambulated multiple times in hallway with rolling walker and assist x2. Patient demanded to go home. Forgetful to
place and time. Patient angry with staff. Patient wanted staff to call his friend to pick him up and drive him home. After much encouragement, patient assisted to bed. Patient now calm and cooperative with care. Assessment as documented.
[2024-04-13] MEDS: MELATONIN PO (22:53)
[2024-04-13] MEDS: KCL 40 MEQ PO (22:54)
[2024-04-13] MEDS: CALCIUM GLUCONATE 100 IV (22:55)
--- NOTE | 2024-04-13 23:30 | PTCARENOTE ---
Patient resting in bed. Dozing intermittently. Calm and cooperative with care. Physician's Chief Security And Safety Officer for CT Surgery, James Kaye PA-C, ordered extra dose Amiodarone 200 mg PO and Calcium Gluconate 2 gram/ 100 ml IV over 1 hr. Administered
without difficulty. Melatonin 5mg PO held. No further changes from previous assessment.
[2024-04-14 03:00] VITALS: BP 112/58
--- NOTE | 2024-04-14 04:00 | PTCARENOTE ---
Patient awake and ambulating with assistance in room. AM labs to be obtained. Assessment/Interventions as documented.
--- NOTE | 2024-04-14 05:00 | W.PN.CT ---
Today's Communication / Plan
-
Plan:
-No major issues overnight. Hemodynamically intact
-Pt confused and impulsive last night. Oriented to self and time, but not to place
-No further a-fib since the 3 hrs in the AM of 04/13/24
-Has been hypotensive postop, improving. Tolerating resumption of BB last night
-Cont. current meds
-OOB into chair/Ambulate
-Possibly home today
Assessment / Plan
-
Assessment:
-S/P Median sternotomy/CABG x 4 (CHIQUI to LAD, sGSV to OM1 to OM3, GSV to PDA)/Endoscopic harvest/prep of RLE GSV, by Dr. Paul, 04/09/24, pod#5
-Multivessel CAD
-Hx stable angina
-Hx [place] S/p PCI with overlapping stents x 3 to prox-distal RCA, 12/24/2010
-S/P unsuccessful PCI/Angioplasty of OM2, 01/07/11
-Hypertension
-Hyperlipidemia
-Prediabetes (hgb A1C 5.8)
-Hypothyroidism
-Parkinson's disease
-S/p Appendectomy
-Acute postop blood loss/Anemia (stable without transfusion)
-Acute postop atelectasis
-Acute postop encephalopathy likely due to Parkinsons
-Acute postop hypovolemia with subsequent hypervolemia
-Postop EKG suggestive of acute pericarditis (+rub, not in excruciating pain)
-Acute postop a-fib 120s at 1:30 am - tx with iv Lopressor, iv Amio bolus and gtt- converted to nsr at 4 am
-Acute postop urinary burning/ retention - tx with Pyridium, Flomax, UA pending
-Acute postop hypotension 04/13 - improved with 250 LR
Discussed patient care with: Cardiology, Nursing, Respiratory Therapy, Pharmacy and Care Team
Subjective
Procedure
-S/P Median sternotomy/CABG x 4 (CHIQUI to LAD, sGSV to OM1 to OM3, GSV to PDA)/Endoscopic harvest/prep of RLE GSV, by Dr. Paul, 04/09/24
-
Date of Service: April 14, 2024
Pt with some confusion and impulsiveness at night, oriented to self and time but not to place
Objective Data
-
Lab Results
04/13/24 04:30
PT 18.2 Sec (11.4-14.6) H 04/09/24 13:13
INR 1.48 04/09/24 13:13
APTT 29.4 Sec (23.4-35.0) 04/09/24 13:13
Vital Signs
Vital Signs
Temp Pulse Resp BP Pulse Ox
98 F 81 17 112/58 97
04/14/24 03:00 04/14/24 04:00 04/14/24 03:00 04/14/24 03:00 04/14/24 03:00
CT Intake/Output/Weight
04/13/24 04/13/24 04/14/24
06:59 18:59 06:59
Intake Total 339.7 / 809.7 370 / 850 480 / 850
Output Total 715 / 1915 525 / 525
Balance -375.3 / -1105.3 370 / 325 -45 / 325
SaO2: 97 (2L)
Physical Exam
-
General: Awake and Oriented (x2, not oriented to place)
Cardiovascular: Regular rate & rhythm, No Murmurs and No Rub
Respiratory: Decreased Breath Sounds (at bases, otherwise clear)
Sternum: Stable
Incision: Clean, Dry, Intact and Dressing Intact
Extremities: No Edema
Data Reviewed
-
Lab Results: Results Reviewed
Medications: Active Meds Reviewed
Chest X-Ray: Report Reviewed and Image Reviewed
ECG: Report Reviewed and Image Reviewed
[2024-04-14 05:59] LABS: Blood Urea Nitrogen 20 mg/dl (9-20); Calcium 8.8 mg/dl (8.4-10.2); Carbon Dioxide 28 mmol/L (22-30); Chloride 102 mmol/L (98-107); Estimated Creatinine Clearance 63 ml/min; Glucose 107 mg/dl (70-99); Magnesium 1.9 mg/dl (1.6-2.3); Potassium 4.1 mmol/L (3.5-5.1); Sodium 140 mmol/L (135-145); eGFR > 60.00
[2024-04-14 06:00] VITALS: BMI 29.7
[2024-04-14] MEDS: TYLENOL PO (06:20)
--- NOTE | 2024-04-14 08:59 | W.PN.CARDCBS ---
Today's Communication / Plan
-
Remains in sinus. Continue amiodarone and metoprolol.
Will continue aspirin and Plavix.
Continue Sinemet for Parkinson's
Okay for discharge.
Impression / Plan
-
PCP: Dr. Dobbs
Baker Operator Automatic: Dr. Adkins
Impression:
CAD
s/p RCA PCI x2 12/24/2010
s/p balloon angioplasty of mid PDA 12/24/2010
unsuccessful PCI of OM 2 01/07/2011
s/p CABG x 4 (CHIQUI to LAD, sGSV to OM1 to OM3, GSV to PDA) 04/09/2024
Hypertension
Hyperlipidemia
Hypothyroidism
Parkinson's disease: may be part of post anesthesia confusion / hallucination
Post op confusion
Brief paroxysmal atrial fibrillation
Echo 03/28/2024: EF 57%, mild-moderate LVH, mild MR, trace AI, mild TR, estimated PAP 31 mmHg, normal aortic root for body surface area, mildly dilated ascending aorta at 4.0 cm
Plan:
-s/p CABG x 4 (CHIQUI to LAD, sGSV to OM1 to OM3, GSV to PDA) 04/09/[address] Paul.
-No further paroxysmal atrial fibrillation. Would continue aspirin and Plavix. Would hold on full anticoagulation with Parkinson's and balance/gait issues
-Continue metoprolol and amiodarone
-continue DAPT, statin
-continue post op care
Progress Note - Baker Operator Automatic
Subjective
Date of Service: April 14, 2024
Having confusion at night. No further atrial fibrillation.
Objective
Labs:
04/13/24 04:30
04/14/24 05:12
Labs
Hgb 10.2 g/dL (13.0-18.0) L 04/13/24 04:30
Hct 29.9 % (39.0-52.0) L 04/13/24 04:30
Plt Count 161 10^3/uL (130-400) 04/13/24 04:30
PT 18.2 Sec (11.4-14.6) H 04/09/24 13:13
INR 1.48 04/09/24 13:13
APTT 29.4 Sec (23.4-35.0) 04/09/24 13:13
Sodium 140 mmol/L (135-145) 04/14/24 05:12
Potassium 4.1 mmol/L (3.5-5.1) 04/14/24 05:12
BUN 20 mg/dl (9-20) 04/14/24 05:12
Creatinine 1.0 mg/dL (0.7-1.3) 04/14/24 05:12
Glucose 107 mg/dl (70-99) H 04/14/24 05:12
Vital Signs and I&O:
Vital Signs
Temp Pulse Resp BP Pulse Ox
98 F 78 17 112/58 97
04/14/24 03:00 04/14/24 06:00 04/14/24 03:00 04/14/24 03:00 04/14/24 06:54
Vital Signs
Temp Pulse Resp BP Pulse Ox
98 F 78 17 112/58 97
04/14/24 03:00 04/14/24 06:00 04/14/24 03:00 04/14/24 03:00 04/14/24 06:54
Intake & Output
04/12/24 04/13/24 04/14/24 04/15/24
06:59 06:59 06:59 06:59
Intake Total 270 / 270 809.7 / 809.7 850 / 850
Output Total 1545 / 1545 1915 / 1915 925 / 925
Balance -1275 / -1275 -1105.3 / -1105.3 -75 / -75
Physical Exam
Physical Exam
GEN: No distress, awake
HEENT: supple, anicteric, mmm
LUNGS: CTA, no wheezes/rales
CV: Reg, S1/S2, no murmur
ABD: soft, BS+, NT/ND
EXT: No edema
NEURO: Gross non-focal
SKIN: sternotomy
[2024-04-14 09:11] VITALS: BP 107/61
[2024-04-14] MEDS: MAGNESIUM OXIDE 500 MG PO (09:11)
[2024-04-14] MEDS: VITAMIN C 500 MG PO (09:12)
[2024-04-14] MEDS: SINEMET 25-100 1 TABLET PO (09:12)
[2024-04-14] MEDS: PACERONE 200 MG PO (09:12)
[2024-04-14] MEDS: LOW STRENGTH ASPIRIN 81 MG PO (09:12)
[2024-04-14] MEDS: PROTONIX 40 MG PO (09:12)
[2024-04-14] MEDS: LIPITOR 40 MG PO (09:12)
[2024-04-14] MEDS: SENOKOT-S PO (09:13)
[2024-04-14] MEDS: TOPROL XL 25 MG PO (09:13)
[2024-04-14] MEDS: PLAVIX 75 MG PO (09:13)
[2024-04-14 12:56] VITALS: BP 101/61
--- NOTE | 2024-04-14 13:35 | PTCARENOTE ---
Patient discharged at 1320. Medications administered as ordered, patient showered, all dressings and peripheral IVs removed, Vital signs stable prior to discharge. Patient seen by DR Paul, [facility], and Physical therapy regarding stairs,
prior to discharge. Discharge instructions reviewed with patient and family, verbalized understanding. Pt discharged by RN via wheelchair, safely transferred to car, seatbelt and heart pillow in place.
[2024-04-14] MEDS: NSS IV (13:40)
--- NOTE | 2024-04-14 17:08 | W.DCSUMMARY ---
Discharge Summary
Discharge Data
Date of Admission: 04/09/24
Date of Discharge: 04/14/24
-
Pending Results: No
Hospital Course
Patient is a 74-year-old gentleman with a longstanding history of coronary artery disease. Past medical history significant for hypertension, hyperlipidemia, hypothyroidism, history of myocardial infarction, history of PCI and stenting x 3. He was
recently diagnosed with Parkinson's disease and has been started on Sinemet. Recent cardiac catheterization showed worsening progression of his coronary artery disease and he was seen in consultation by Dr. Gonzalo Paul. Patient was felt to be
acceptable surgical candidate and was scheduled for an elective CABG. On the morning of 04/09/2024 he was electively admitted to [facility] where later that morning was brought to the operating room where he underwent coronary artery
bypass grafting with 4 distal anastomoses. The left internal mammary artery was utilized to bypass the left anterior descending coronary artery. A single saphenous vein graft was utilized to bypass the first obtuse marginal and third obtuse
marginal sequentially. A single saphenous vein graft was utilized to bypass the posterior descending coronary artery. Postprocedure transesophageal echocardiogram showed a ejection fraction of 60%. He tolerated the procedure well and was returned
to the surgical intensive care unit where he arrived in hemodynamically stable condition. He was briefly supported on low-dose Levophed.
It should be noted he did not receive any blood transfusions in the operating room or during his entire hospitalization at [facility].
Postoperative day #1 patient was intermittently confused and all narcotics were discontinued. He was started on a regimen of beta-blockers and his insulin drip was discontinued. He was diuresed with IV Lasix and restarted on his Parkinson
medication Sinemet.
Postoperative day #2 his chest tubes were able to be removed. Patient's paranoia probably due to Parkinson's disease.
Postoperative day #3 he was diuresed with IV Lasix, his Cordis was removed and mental status seemed to return to baseline. He was suffering from insomnia and was given melatonin for sleep.
Postoperative day #4 he again had confusion overnight. He went into atrial fibrillation for 4 hours but converted back to sinus rhythm with amiodarone drip and bolus. He complained of burning with urination and urinalysis was sent and was negative.
Postoperative day #5 he has remained in sinus rhythm overnight. He ambulated in the hallway with physical therapy without difficulty. He was able to be safely discharged in the afternoon of 04/14 his fifth postoperative day.
Discharge labs were as follows hemoglobin 10.2, hematocrit 29.9, white blood cell count 10.7, platelets 161. BUN 20 and creatinine 1.0.
Chest x-ray at time of discharge showed small bilateral effusions and otherwise was clear.
He was given a full set of discharge instructions and follow-up appointments with Dr. Paul. He will also follow-up with his primary care provider Reece Peter. He will also be followed by our transitional care nurses to closely monitor his
recovery from coronary artery bypass grafting surgery.
Discharge Plan
-
Patient Disposition: Home (Routine Discharge)
Discharge Diagnosis/Procedures: coronary disease/coronary artery bypass
Condition: Fair
Diet: Low Cholesterol and Low Sodium
Activity: No strenuous activity
Driving Restrictions: Not until seen by your Dr
Bathing Restrictions: OK to Shower
Other Services: Cardiac Rehab
Specialty Instructions: Weigh Daily- Call MD for wt gain/loss 3 lbs overnight/5 lbs in 1 week
Activity Restrictions/Additional Instructions:
Please call [facility] to schedule your first visit at [phone]
Referrals:
CT Transitional Care Nurse [Outside] (The Cardiothoracic Transitional Care Nurse will call you to set up a visit in 1-2 days.)
Sheree Deluca CRNP [Specified Professional Personl] - 05/14/24 10:40 am
Vineet Jones MD [Active] - in four to six weeks
(Pulmonary nodule
Dr. Jones or nurse practitioner)
Gonzalo Paul MD [Active] - 05/08/24 1:30 pm
Reece Dobbs, DO [Family Provider] -
Additional Discharge Medication Instructions: new rx. amiodarone/clopidogrel/metoprolol succinate/pantoprazole/sennosides-docusate sodium
Stop:lisinopril/celecoxib/CoQ10/prevagen/total beets/triamterene-hydrochlorothiazide
Prescriptions:
New
amiodarone [Pacerone] 200 mg tablet
200 mg PO BID Qty: 60 1RF
sennosides-docusate sodium 8.6-50 mg Tablet
1 tab PO Q12 Qty: 20 1RF
clopidogrel 75 mg Tablet
75 mg PO DAILY Qty: 30 3RF
pantoprazole 40 mg Tablet,Delayed Release (Dr/Ec)
40 mg PO DAILY Qty: 30 3RF
acetaminophen 325 mg Tablet
650 mg PO Q4HPRN PRN (Reason: mild pain,headache,temp >101F ) Qty: 0 0RF
metoprolol succinate 25 mg Tablet Extended Release 24 Hr
25 mg PO BID Qty: 60 1RF
carbidopa-levodopa 25-100 mg Tablet
1 tab PO TID Qty: 90 0RF
Continued
atorvastatin 40 mg Tablet
40 mg PO DAILY
aspirin 81 mg Tablet,Chewable
81 mg PO DAILY
ascorbic acid (vitamin C) [Vitamin C] 500 mg Tablet
500 mg PO DAILY
Discontinued
lisinopril 5 MG tablet
5 mg PO DAILY
triamterene-hydrochlorothiazid 37.5-25 mg Capsule
1 cap PO DAILY
coQ10 (ubiquinol) [Qunol Aly CoQ10] 100 mg Capsule
100 mg PO DAILY
Prevagen
1 cap PO DAILY
Total Beets
1 cap PO BID
celecoxib [Celebrex] 200 mg Capsule
200 mg PO BID PRN (Reason: pain)
Discharge Orders:
Discharge Patient (As Directed); Ordered 04/14/24
Ordered By: Praveen Oneil
Care Plan Goals
Care Plan Goals:
Problem: Readiness for enhanced knowledge related to diagnosis and treatment plan
Goal: Understand your diagnosis and treatment plan needs, including medications if applicable.
Instructions: Know your diagnosis, underlying causes and treatment plan options, including medications if applicable. Consult with your health care team to learn about your diagnosis and treatment plan, including medications if applicable.
Discharge Date and Time
Discharge Date/Time: 04/14/24 13:32
Print Language: HUNGARIAN
== END 2024-04-14 13:32 | disposition home or self-care (01) | DRG 236 ==
LOC: CVICU 05:07
PROVIDERS: Anesthesiology; Clinical Nurse Specialist Acute Care; Physician Assistant Medical; ADMITTING PHYSICIAN Thoracic Surgery (Cardiothoracic Vascular Surgery); CONSULT PHYSICIAN Internal Medicine Critical Care Medicine; FAMILY PHYSICIAN Internal Medicine
PROC: 02100ZC Bypass Coronary Artery, One Artery from Thoracic Artery, Open Approach (ICD-10-PCS; 2024-04-09)
PROC: 06BP4ZZ Excision of Right Saphenous Vein, Percutaneous Endoscopic Approach (ICD-10-PCS; 2024-04-09)
PROC: 5A1221Z Performance of Cardiac Output, Continuous (ICD-10-PCS; 2024-04-09)
PROC: 021209W Bypass Coronary Artery, Three Arteries from Aorta with Autologous Venous Tissue, Open Approach (ICD-10-PCS; 2024-04-09)
PROC: B24BZZ4 Ultrasonography of Heart with Aorta, Transesophageal (ICD-10-PCS; 2024-04-09)
DX: I25.118 Atherosclerotic heart disease of native coronary artery with other forms of angina pectoris (principal); D62 Acute posthemorrhagic anemia; E44.0 Moderate protein-calorie malnutrition; J98.11 Atelectasis; G93.49 Other encephalopathy; I30.9 Acute pericarditis, unspecified; E78.5 Hyperlipidemia, unspecified; E03.9 Hypothyroidism, unspecified; I10 Essential (primary) hypertension; R91.1 Solitary pulmonary nodule; K80.20 Calculus of gallbladder without cholecystitis without obstruction; G20.A1 Parkinson's disease without dyskinesia, without mention of fluctuations; G47.00 Insomnia, unspecified; E87.70 Fluid overload, unspecified; E86.1 Hypovolemia; I95.81 Postprocedural hypotension; R33.8 Other retention of urine; I48.0 Paroxysmal atrial fibrillation; I25.2 Old myocardial infarction; Z68.29 Body mass index [BMI] 29.0-29.9, adult; Z79.82 Long term (current) use of aspirin; Z79.899 Other long term (current) drug therapy; Z95.5 Presence of coronary angioplasty implant and graft
CPT/HCPCS: 36415; 71045; 71046; 80048; 80053; 81003; 82248; 82330; 82565; 82805; 82947; 82962; 83036; 83735; 84132; 84302; 84520; 85014; 85018; 85025; 85027; 85049; 85379; 85610; 85730; 86850; 86900; 86901; 86920; 87070; 93005; 93312; 93320; 93325; 93880; 94002; 94010; 97116; 97163; 97166; 97530; 97535

== ENCOUNTER → 2024-06-11 10:29 | Outpatient (REF) | payer MEDICARE, SELFPAY | LOC: PAVMRI 10:29 | PROVIDERS: ATTENDING PHYSICIAN Internal Medicine | DX: G31.9 Degenerative disease of nervous system, unspecified (principal); M54.12 Radiculopathy, cervical region | CPT/HCPCS: 70553; 72156; A9575 ==

== ENCOUNTER 2024-11-18 03:21 | Emergency (ER) | payer MEDICARE, SELFPAY ==
[2024-11-18 03:24] VITALS: BP 175/85; BMI 29.4
[2024-11-18 03:25] VITALS: BP 175/85
[2024-11-18 03:37] LABS: % Basophils 0.5 % (0-2); % Eosinophils 1.1 % (0-6); % Immature Granulocytes 0.3 % (0-0.5); % Lymphocytes 25.9 % (20.5-51.1); % Neutrophils 62.2 % (42.2-75.2); Absolute Basophils 0.1 10^3/uL (0-0.2); Absolute Eosinophils 0.1 10^3/uL (0-0.7); Absolute Lymphocytes 2.6 10^3/uL (1.2-3.4); Absolute Neutrophils 6.3 10^3/uL (1.4-6.5); Hematocrit 42.3 % (39.0-52.0); Hemoglobin 14.2 g/dL (13.0-18.0); Mean Corp Hgb Conc. 33.6 g/dL (33.0-37.0); Mean Corpuscular Hgb 28.5 pg (27.0-31.0); Mean Corpuscular Volume 84.9 fL (80.0-94.0); Mean Platelet Volume 11.4 fL (7.4-10.4); Nucleated Red Blood Cells % 0 % (-); Platelet Count 195 10^3/uL (130-400); Red Blood Cell Count 4.98 10^6/uL (4.70-6.10); Red Cell Dist. Width 14.2 % (11.5-14.5); White Blood Cell Count 10.2 10^3/uL (4.8-10.8)
[2024-11-18 03:56] LABS: ALT (SGPT) 34 U/L (0-50); AST (SGOT) 37 U/L (17-59); Albumin 4.7 g/dl (3.5-5.0); Alkaline Phosphatase 59 U/L (38-126); Blood Urea Nitrogen 21 mg/dl (9-20); Calcium 9.4 mg/dl (8.4-10.2); Carbon Dioxide 24 mmol/L (22-30); Chloride 110 mmol/L (98-107); Estimated Creatinine Clearance 72 ml/min; Glucose 120 mg/dl (70-99); Sodium 143 mmol/L (135-145); Total Bilirubin 1.9 mg/dl (0.2-1.3); Total Protein 7.3 g/dl (6.3-8.2); eGFR > 60.00
[2024-11-18 04:44] VITALS: BP 130/74
[2024-11-18 05:10] VITALS: BP 141/74
--- NOTE | 2024-11-18 05:24 | ED.GENMED ---
History of Present Illness
General
Chief Complaint: Change in Mental Status
Source: patient, spouse, family and previous hospital records (Hospitalization March 2024 for elective CABG. Patient noted to have significant confusion for a number of days postoperatively. Confusion thought to be Parkinson's related.)
Exam Limitations: none
Time Seen by Provider: 11/18/24 04:15
Nursing documentation reviewed up to this point in time: agreed with
History of Present Illness
History of Present Illness:
This is a 74-year-old gentleman with history of hypertension, hyperlipidemia, CAD, ID as well as history of Parkinson's disease that was diagnosed last year.
Was started on Sinemet at that time but patient notes chronic issues with nausea with Sinemet most noted after each dose he takes. Admits that he has been frequently noncompliant with Sinemet due to intermittent nausea. He follows with neurologist
and due to persistent nausea, he trialed a different medication, pramipexole with discontinuation of Sinemet on October 31.
He had poor response with pramipexole and thus discontinued this just 2 days ago and resume Sinemet.
Over the past 2 weeks he has had intermittent hallucinations, poor sleep, occasional wandering at nighttime. He has not had a fall, no fever nor chills, no chest nor abdominal pain, no coughing or shortness of breath. His appetite has been good.
No difficulty moving his bowels or bladder.
Sinemet was resumed just 2 days ago but he admits to not taking this 3 times daily due to return of nausea. He does however admit that he has had no episodes of vomiting.
also concerned with elevated blood pressure tonight. Systolic elevated at 200.
Upon review of records, patient underwent elective CABG March 2024. He suffered significant confusion postoperatively that was thought to be Parkinson's related. According to family, confusion and intermittent hallucinations persisted for
several weeks postop and he has had intermittent confusion and intermittent hallucinations ongoing for a number of weeks but overall worsened over the past 2 weeks.
Past History
Past History
ED Past Medical History: CAD, HTN, Hypercholesterolemia, ID and Other (Parkinson's disease)
ED Past Surgical History: Appendectomy and Cardiac (CABG March 2024; PTCA with stent 2010)
Social History
Tobacco: Non-smoker
Alcohol: None
Drug: None
Personal:
Living: with family
Employment: Retired
Family History
Family History: Other (Noncontributory)
Phy Exam
Physical Exam
Physical Exam:
GENERAL: 74-year-old gentleman appears his stated age, awake and alert, oriented x 3, appears in no acute distress. Moderate bradykinesia is noted but able to answer questions appropriately. He offers no complaints.
EYE: pupils equal and reactive. anicteric
NECK: Supple, nontender, no meningismus, no significant adenopathy.
ENT: posterior pharynx is clear, oral mucosa is moist. No rhinorrhea.
CARDIAC: Regular rate and rhythm. no murmur.
LUNGS: Clear breath sounds bilaterally, no acute respiratory distress, no wheezes/rales/rhonchi
ABDOMEN: Soft, nondistended, without focal tenderness
NEUROLOGICAL: Alert and oriented x3, no focal neuro deficits. Mild bradykinesia. Mask-like facies. No tremor. No weakness. Ambulatory with mildly slow shuffling gait, but overall steady.
SKIN: Warm and dry, normal color, skin intact. No rash.
MUSCULOSKELETAL: No C/C/E. peripheral pulses are full and equal b/l. No palpable tenderness.
PSYCH: Mildly blunted affect. Speech is clear. Alert and oriented x 3. No hallucinations.
Course
Orders/Labs/Results
Orders:
Orders
11/18/24 03:30
CBC/With Diff [Complete Blood Count/With Diff] Urgent
CMP [Comprehensive Metabolic Panel] Urgent
11/18/24 03:32
CT Head W/o Iv Contrast Urgent
Comment:
Reason For Exam: increased confusion
11/18/24 04:17
Urinalysis Reflex To Culture Urgent
Abnormal Lab Results
11/18/24
03:30
MPV 11.4 H fL
(7.4-10.4)
Absolute Monos (auto) 1.0 H 10^3/uL
(0.1-0.6)
Monocytes % 10.0 H %
(1.7-9.3)
Chloride 110 H mmol/L
(98-107)
BUN 21 H mg/dl
(9-20)
Glucose 120 H mg/dl
(70-99)
Total Bilirubin 1.9 H mg/dl
(0.2-1.3)
11/18/24 03:30
11/18/24 03:30
Vital Signs
Initial and Last Documented VS:
Initial Vital Signs
Temp Pulse Resp BP Pulse Ox
98.2 F 70 22 175/85 97
11/18/24 03:24 11/18/24 03:24 11/18/24 03:24 11/18/24 03:24 11/18/24 03:24
Last Documented Vital Signs
Temp Pulse Resp BP Pulse Ox
98.2 F 70 9 175/85 97
11/18/24 03:24 11/18/24 03:45 11/18/24 03:45 11/18/24 03:25 11/18/24 03:45
MDM/Problems Addressed
Differential Diagnosis Includes:
Concern for exacerbation of Parkinson's as cause for hallucinations, poor sleep.
Other consideration is progressive dementia, metabolic derangement, less likely CVA.
Patient overall appears comfortable. He is oriented x 3, no focal neurodeficits and currently without hallucinations.
Will check labs, CT of the head.
MDM/Problems Addressed:
Parkinson's disease. Recently resumed Sinemet just 2 days ago after doing poorly with a 2-week trial of pramipexole.
Hypertension. Reports elevated blood pressure at home with systolic of 200. Moderate systolic hypertension upon arrival but improving.
CAD. Stable without flare. Patient denies chest pain or shortness of breath. Weight has been stable.
Chronic conditions affecting care: HTN, CAD and Neurological disorder
Acute Exacerbation and/or Progression of Chronic Illness: Neurological disorder
*Radiology
Radiology exam reviewed: radiology read reviewed (CT of the head is unremarkable. No acute intracranial abnormality.)
*Pulse Oximetry
SaO2: 97
Oxygen Mode of Delivery: Room air
Patient hypoxic: no
*Director Quality Systems Interpretation
Rate: normal
Interpretation: normal
Rhythm: sinus
*Critical Care Note
Total Time (30-74mins, 75-104mins- exclusive of procedures): Not Applicable
Update Note
Update Note:
05:30
Labs are unremarkable.
CT of the head is unremarkable.
Patient remains awake and alert, no hallucinations. He has ambulated to and from the bathroom with slow but steady unaided gait.
Blood pressure improved to 140/70.
At this point no indication for acute hospitalization.
concerned with intermittent hallucinations, intermittent poor sleep and wandering at nighttime as well as intermittent nausea that overall appears chronic in nature.
I suspect worsening of symptoms more recently over the past 2 weeks related to recent change in Parkinson's medication. Now that he has resumed his Sinemet 2 days ago the symptoms should hopefully improve over the next several days.
Encouraged to continue Sinemet, 3 times daily. Try taking with meals.
Ultimately patient will require prompt follow-up with neurologist to discuss options regarding Parkinson's treatment and side effect of nausea with Sinemet. Perhaps a long-acting formula versus orally dissolvable formula may be of benefit.
ED Attending Note
-
Portions of this chart may have been created with voice recognition software.� Occasional wrong word or��sound alike� substitutions may have occurred due to the inherent limitations of voice recognition software.
Discharge Plan
Departure
Patient Disposition: Home (Routine Discharge)
Date of Disposition: 11/18/24
Time of Disposition: 05:39
Patient with high blood pressure during this ER visit?: No
Condition: Good
Discharge Problem:
Parkinson disease with fluctuating manifestations
Instructions: Parkinson disease, Medicines for Parkinson disease
Prescriptions:
No Action
atorvastatin 40 mg Tablet
40 mg PO DAILY
aspirin 81 mg Tablet,Chewable
81 mg PO DAILY
ascorbic acid (vitamin C) [Vitamin C] 500 mg Tablet
500 mg PO DAILY
sennosides-docusate sodium 8.6-50 mg Tablet
1 tab PO Q12 Qty: 20 1RF
clopidogrel 75 mg Tablet
75 mg PO DAILY Qty: 30 3RF
pantoprazole 40 mg Tablet,Delayed Release (Dr/Ec)
40 mg PO DAILY Qty: 30 3RF
acetaminophen 325 mg Tablet
650 mg PO Q4HPRN PRN (Reason: mild pain,headache,temp >101F ) Qty: 0 0RF
metoprolol succinate 25 mg Tablet Extended Release 24 Hr
25 mg PO BID Qty: 60 1RF
carbidopa-levodopa 25-100 mg Tablet
1 tab PO TID Qty: 90 0RF
furosemide [Lasix] 40 mg Tablet
40 mg PO DAILY
trazodone 50 mg Tablet
50 mg PO HS
clonazepam 0.5 mg Tablet
0.5 mg PO DAILY
amiodarone [Pacerone] 200 mg tablet
200 mg PO DAILY
Referrals:
Reece Dobbs DO [Family Provider, Internal Medicine] - Call in 1-3 days for appt
Activity Restrictions/Additional Instructions:
Call your neurologist tomorrow to discuss current issues with poor sleep, nausea with levodopa, intermittent hallucinations.
Interventions
Interventions:
*Risk Screen - Suicide Last Done: 11/18/24 03:24
*General Assessment Last Done: 11/18/24 03:24
*Neglect/Abuse Screening Last Done: 11/18/24 03:24
*ED- Fall Risk Assessment Last Done: 11/18/24 03:24
*ED COVID-19 Vaccine History Last Done: 11/18/24 03:24
ED- Neurological Assessment Last Done: 11/18/24 03:30
Discharge Date and Time
Print Language: LEBANESE
[2024-11-18 06:49] LABS: Urine Albumin 1+ (Neg - Trace); Urine Bilirubin Negative (Negative); Urine Character Clear (Clear); Urine Color Amber; Urine Glucose Negative (Negative); Urine Ketone 1+ (Negative); Urine Leukocyte Negative (Negative); Urine Nitrite Negative (Negative); Urine Occult Blood Negative (Negative); Urine Specific Gravity 1.025 (<1.030); Urine Urobilinogen 1+ (Neg - 1+)
[2024-11-18 08:00] LABS: Urine Mucus Few; Urine Squamous Cell 0-2 /LPF (Few); Urine Urothelial Cell 0-2 /LPF (FEW)
[2024-11-18 08:01] LABS: Urine Bacteria Few (Negative); Urine Red Blood Cell 0-2 /HPF (0-2)
== END 2024-11-18 06:20 | disposition home or self-care (01) ==
LOC: EMR 03:21
PROVIDERS: EMERGENCY PHYSICIAN Emergency Medicine; FAMILY PHYSICIAN Internal Medicine
DX: G20.A2 Parkinson's disease without dyskinesia, with fluctuations (principal); I10 Essential (primary) hypertension; E78.00 Pure hypercholesterolemia, unspecified; I25.10 Atherosclerotic heart disease of native coronary artery without angina pectoris; Z95.1 Presence of aortocoronary bypass graft; Z95.5 Presence of coronary angioplasty implant and graft
CPT/HCPCS: 99284; 70450; 80053; 81003; 81015; 85025

== ENCOUNTER 2024-12-04 13:38 | Observation (INO) | payer MEDICARE, SELFPAY ==
[2024-12-04 08:51] VITALS: BMI 30.2
[2024-12-04 08:52] VITALS: BP 127/72
[2024-12-04 09:14] LABS: Hematocrit 43.0 % (39.0-52.0); Hemoglobin 14.2 g/dL (13.0-18.0); Mean Corp Hgb Conc. 33.0 g/dL (33.0-37.0); Mean Corpuscular Volume 85.8 fL (80.0-94.0); Nucleated Red Blood Cells % 0 % (-); Platelet Count 212 10^3/uL (130-400); Red Cell Dist. Width 14.2 % (11.5-14.5)
--- NOTE | 2024-12-04 09:21 | ED.GENMED ---
History of Present Illness
General
Chief Complaint: Weakness
Source: patient
Exam Limitations: none
Time Seen by Provider: 12/04/24 08:53
History of Present Illness
History of Present Illness:
74-year-old male with history of Parkinson's presents with generalized weakness and back pain. He lives at home with his . His is in the room who tells me his Parkinson medication was adjusted in the last 2 weeks. They describe today he
was trying to get to the bathroom when he stood up and his feet just would not work. They seem to be stuck to the floor. No recent fevers or vomiting. No other complaints
Past History
Past History
ED Past Medical History: CAD, HTN, Hypercholesterolemia, VT and Other (Parkinson's disease)
ED Past Surgical History: Appendectomy and Cardiac (CABG March 2024; PTCA with stent 2010)
Social History
Tobacco: Non-smoker
Alcohol: None
Drug: None
Personal:
Living: with family
Employment: Retired
Family History
Family History: Other (Noncontributory)
Phy Exam
Physical Exam
Physical Exam:
General: Well-appearing male no acute respiratory distress
HEENT: Normocephalic atraumatic blunted affect
Heart: Regular rate and rhythm
Lungs: Clear no wheeze
Abdomen is soft nontender
Neurologic exam: Alert and oriented no facial asymmetry bilateral generalized weakness is noted to the lower extremities
Skin is warm no rash
Course
Orders/Labs/Results
Orders:
Orders
12/04/24 08:51
Electrocardiogram (*1) Urgent
Reason for Study: Chest Pain
EKG- Treatment ONCE
12/04/24 09:02
Complete Blood Count/With Diff Urgent
Comprehensive Metabolic Panel Urgent
12/04/24 09:12
CR Lumbar Spine 2 Or 3 Views Urgent
Comment:
Reason For Exam: back pain
12/04/24 11:08
Urinalysis Reflex To Culture Urgent
Date Specimen was Collected: 12/04/24
Time Specimen was Collected: 11:06
Urine Microscopic Reflex Cult Urgent
12/04/24 11:41
PT Consult [Pt Eval And Treat] Urgent
Activity Level: Ambulate
Abnormal Lab Results
12/04/24 12/04/24
09:02 11:08
MPV 11.1 H fL
(7.4-10.4)
Lymphocytes % 17.4 L %
(20.5-51.1)
Glucose 114 H mg/dl
(70-99)
Total Bilirubin 1.7 H mg/dl
(0.2-1.3)
Urine Albumin (Reflex) 1+ A
(Neg - Trace)
12/04/24 09:02
12/04/24 09:02
Vital Signs
Initial and Last Documented VS:
Initial Vital Signs
Temp Pulse Resp BP Pulse Ox
98.3 F 72 16 127/72 96
12/04/24 08:52 12/04/24 08:52 12/04/24 08:52 12/04/24 08:52 12/04/24 08:52
Last Documented Vital Signs
Temp Pulse Resp BP Pulse Ox
98.3 F 64 14 146/83 96
12/04/24 08:52 12/04/24 11:53 12/04/24 09:00 12/04/24 11:53 12/04/24 11:53
MDM/Problems Addressed
Differential Diagnosis Includes:
Generalized weakness. No unilateral deficit to suggest CVA. Question underlying infectious source versus electrolyte abnormality versus flare of Parkinson's
*Pulse Oximetry
SaO2: 96
Oxygen Mode of Delivery: Room air
Patient hypoxic: no
*Critical Care Note
Total Time (30-74mins, 75-104mins- exclusive of procedures): Not Applicable
Update Note
Update Note:
Labs reviewed without significant finding. X-ray normal. Patient was seen by physical therapy. Physical therapy unable to even get patient to stand safely. This is due to generalized weakness. Suspect possible Parkinson's flare. Will keep in
hospital
ED Attending Note
-
Portions of this chart may have been created with voice recognition software.� Occasional wrong word or��sound alike� substitutions may have occurred due to the inherent limitations of voice recognition software.
Discharge Plan
Departure
Patient Disposition: Admit
Date of Disposition: 12/04/24
Time of Disposition: 12:39
Presentation/result/management discussed w/ accepting MD/DO: Hospitalist
Discharge Problem:
Generalized weakness
Prescriptions:
No Action
atorvastatin 40 mg Tablet
40 mg PO QPM
aspirin 81 mg Tablet,Chewable
81 mg PO DAILY
ascorbic acid (vitamin C) [Vitamin C] 500 mg Tablet
500 mg PO DAILY
acetaminophen 325 mg Tablet
650 mg PO Q4HPRN PRN (Reason: mild pain,headache,temp >101F ) Qty: 0 0RF
carbidopa-levodopa 25-100 mg tablet
1 tab PO BID
clonidine HCl 0.1 mg Tablet
0.1 mg PO TIDPRN PRN (Reason: high blood pressure)
polyethylene glycol 3350 [Miralax] 17 gram Powder In Packet
17 g PO DAILYPRN PRN (Reason: constipation)
metoprolol succinate 25 mg tablet extended release 24 hr
25 mg PO DAILY
Referrals:
Robert Enrique CRNP [Family Provider, General]
Interventions
Interventions:
*Risk Screen - Suicide Last Done: 12/04/24 08:52
*General Assessment Last Done: 12/04/24 08:52
*Neglect/Abuse Screening Last Done: 12/04/24 08:52
*ED- Fall Risk Assessment Last Done: 12/04/24 08:52
ED- Cardiac Assessment Last Done: 12/04/24 09:24
ED- Neurological Assessment Last Done: 12/04/24 09:24
ED- Pulmonary Assessment Last Done: 12/04/24 09:24
Discharge Date and Time
Print Language: BERMUDIAN
[2024-12-04 09:48] LABS: ALT (SGPT) 21 U/L (0-50); AST (SGOT) 34 U/L (17-59); Albumin 4.4 g/dl (3.5-5.0); Alkaline Phosphatase 50 U/L (38-126); Blood Urea Nitrogen 17 mg/dl (9-20); Calcium 9.7 mg/dl (8.4-10.2); Carbon Dioxide 29 mmol/L (22-30); Chloride 107 mmol/L (98-107); Estimated Creatinine Clearance 76 ml/min; Glucose 114 mg/dl (70-99); Potassium 3.7 mmol/L (3.5-5.1); Sodium 142 mmol/L (135-145); Total Protein 6.7 g/dl (6.3-8.2); eGFR > 60.00
[2024-12-04 11:20] LABS: Urine Character Clear (Clear)
[2024-12-04 11:53] VITALS: BP 146/83
[2024-12-04 12:13] LABS: Urine Red Blood Cell 0-2 /HPF (0-2); Urine Squamous Cell 0-2 /LPF (Few); Urine White Cell 0-2 /HPF (0-5)
[2024-12-04 12:36] VITALS: BP 148/79
[2024-12-04] MEDS: TYLENOL 650 MG PO ×2 (13:02→17:47)
--- NOTE | 2024-12-04 13:50 | HPS.HSE ---
Family Physician
-
Family Physician: Robert Enrique
Chief Complaint
-
Generalized weakness
History of Present Illness
74-year-old male with history of Parkinson disease, coronary artery disease status post CABG, dyslipidemia, hypertension and ambulatory dysfunction, who was recently have his medication changed and adjusted by his neurologist in outpatient and the
family does not know what was his neurologist basically started him pramipexole which he took from October 25 until end october basically November 17 were discontinued because of the side effect from November 2017 he was started back on his carbidopa levodopa 1
tablet 3 times a day but according to the family lately he is having worsening rigidity, ambulatory dysfunction and tremor and insomnia with hallucination, still been eating and drinking well and moving his bowels on daily weight also complaining of
the lower back pain without any fall, no fever or chill no headache or vision change, according to the family he is not sleeping much he feels tired manage to sleep he lays down but is wakes up quickly. Spoke to the , [id number] at the
bedside also with the daughter over the phone. No urinary symptoms, no nausea or vomiting or any weight change. So far workup in the ER showed no abnormality also his condition discussed with neurology over the phone. does not know the name
of his neurologist.
Medical History
Past Medical History
Past Medical History: Reports Other
Additional Past Medical History:
Past medical history:
Parkinson disease
Coronary artery disease status post CABG
Dyslipidemia
Hypertension
Cognitive impairment
Surgical history:
Cardiac cath and stenting x 3
Coronary artery bypass graft
Appendectomy
Social history: Lives at home with , ambulates with automobile mechanic assistant, no smoking alcohol or drug use
Family history: Positive for hypertension coronary artery disease.
Past Surgical History: Reports Other
Social History
Unable to obtain full social history at this time due to: Other
Family History
Family History: Other
Allergies / Home Medications
Allergies reflects when Allergies were last updated in [employer].
Home Medications with original date entered in [employer]
Allergy/Medication List:
Allergies
Allergy/AdvReac Type Severity Reaction Status Date / Time
No Known Allergies Allergy Verified 12/04/24 08:50
Home Medications
aspirin 81 mg chewable tablet 81 mg PO DAILY Blood Clot Prevention/Tx 03/06/24
atorvastatin 40 mg tablet 40 mg PO QPM High Cholesterol 03/06/24
ascorbic acid (vitamin C) 500 mg tablet (Vitamin C) 500 mg PO DAILY Supplement 04/02/24
acetaminophen 325 mg tablet 650 mg (2 x 325 mg) PO Q4HPRN PRN mild pain,headache,temp >101F #0 tabs 04/14/24
carbidopa 25 mg-levodopa 100 mg tablet 1 tab PO BID parkinsons disease 12/04/24
metoprolol succinate 25 mg tablet,extended release 24 hr 25 mg PO DAILY Heart disease/condition 12/04/24
polyethylene glycol 3350 17 gram oral powder packet (Miralax) 17 g PO DAILYPRN PRN constipation 12/04/24
Review of Systems
-
A 12 point ROS was completed and negative except as noted: Yes
Physical Exam
Vital Signs
Vital Signs
Temp Pulse Resp BP Pulse Ox
99.1 F 64 14 146/83 96
12/04/24 12:56 12/04/24 11:53 12/04/24 09:00 12/04/24 11:53 12/04/24 11:53
Physical exam:
General: Lethargic, follows command, speaks in low tone of voice not in distress oriented x3, .
HEENT: No active discharge, ecchymosis or bruising, dry lips, tongue and mucous membrane.
Eyes: No discharge or red conjunctiva, no nystagmus, pupils are reactive and equal
Neck:Supple, no JVD no bruit no goiter.
Respiratory: Normal AP contour and diameter, normal chest wall movement, normal respiratory effort, no respiratory distress,
Lungs: Good air entry bilaterally, no wheezing or rhonchi, no rales or crackles
Heart: S1, S2 regular, normal rate, no added sound.
Gastrointestinal: Positive bowel sounds, soft, nontender, no guarding or rigidity or organomegaly
Musculoskeletal: , no chest wall abnormality or tenderness. All joints and extremities have good range of motion, no muscle tenderness or any joint swelling or tenderness.
Extremities: No pitting edema, good peripheral pulses, good range of motion
Skin: Warm and dry, normal color.
Neurological: Lethargic but oriented x 3, speaks in low tone of voice, move extremity, rigidity appreciated, fine tremor appreciated
Psychiatric: Flat affect, normal mood, questionable thought and judgment,
Physical Exam
General: Other
Laboratory Results
-
12/04/24 09:02
12/04/24 09:02
Laboratory Results
Total Bilirubin 1.7 mg/dl (0.2-1.3) H 12/04/24 09:02
AST 34 U/L (17-59) 12/04/24 09:02
ALT 21 U/L (0-50) 12/04/24 09:02
Alkaline Phosphatase 50 U/L (38-126) 12/04/24 09:02
Lumbar spine x-ray:
Multilevel degenerative disc disease as described above.
Mild upper lumbar spinal levoscoliosis.
Moderate fecal material in the colon
Data Reviewed
-
Diagnostic Radiology: Image Personally Visualized and interpreted, Report Reviewed by me and Discussed with Family
Lab Data: Labs Reviewed by me and Discussed with Family
Old Records: Reviewed
Impression/Plan
-
IMPRESSION:
74-year-old male presented to the hospital by family for worsening rigidity, tremor, hallucination and there is some adjustment of his medication done as an outpatient, so far workup showed no acute abnormalities, possibly related to worsening
Parkinson disease need to be considered hand likely.
Assessment and plan:
Generalized weakness:
Possible multifactorial including poor oral intake, dehydration or worsening parkinsonism to be considered.
PT OT and assess functional status
UA is clear
Get a blood culture
As discussed with the daughter and the are quite they prefer him to be placed.
Worsening rigidity and tremor, as above likely secondary to worsening Parkinson
Med adjustment need to be considered
Neurology consult discussed with neurology
Parkinson disease:
Known history is possible worsening
Continue carbidopa-levodopa 1 tablet 3 times daily which was reconciled with family.
Coronary artery disease status post CABG:
Stable
Continue aspirin, atorvastatin and Toprol monitor vital sign.
All discussed with the patient and the family in detail and expressed understanding of the question answered
CODE STATUS full code
DVT prophylaxis Lovenox
--- NOTE | 2024-12-04 14:32 | CON.NEURO ---
Addendum entered and electronically signed by Malvin Miguel MD 12/04/24 17:28:
Patient been more anxious and jittery, family cannot worry will start him on Xanax as needed for now with close monitoring
Fall precaution
Discussed with the nurse
Speech pathologist recommended soft diet with thin liquid
Addendum entered and electronically signed by Shaun Martinez MD 12/04/24 17:19:
Studies reviewed.
I have personally examined the patient. I reviewed and agree with the DRIER ATTENDANT's Note.
My addenda:
Awake, not alert, interactive. No acute distress.
Speech significantly hypophonic
Unable to follow some 1-step requests w/o difficulty. Minimal distal hand tremor rarely seen.
Extra-ocular movements reduced with upgaze.
Facial movements full and symmetric. Hearing intact to normal conversational volume.
Normal UE movements bilaterally.
Neck: full ROM.
Chest: no dyspnea
Heart: no JVD
Ext: (-) Clubbing, (-) Cyanosis, (-) Edema
IMPRESSIONS/RECOMMENDATIONS:
Abrupt onset of worsening Parkinson's disease
Most likely due to chronic progressive degenerative worsening of this disorder.
Unlikely that the patient will have significant improvement based on progressive decline and failure to benefit from prior therapies
start Rotigotine patch
Physical therapy, speech therapy, Occupational Therapy
Monitor for orthostasis
D/W patient
Will continue to follow peripherally.
Original Note:
Neuro Assessment/Plan
Assessment
74-year-old male with history of Parkinson disease, coronary artery disease status post CABG, dyslipidemia, hypertension and ambulatory dysfunction, who presented to [facility] on 12/04/2024 with generalized weakness and ambulatory dysfunction.
Lumbar Spine X-Ray 12/04/2024: There is a mild upper lumbar spinal levoscoliosis. There is moderate fecal material throughout the colon. There is moderate disc space narrowing at L2/L3. There is mild narrowing at L1/L2, L3/L4 and L5/S1. Vertebral
body heights are maintained.
Head CT 11/18/2024: No acute intracranial abnormality.
Cervical Spine MRI 06/11/2024: There is multilevel mild degenerative changes with resultant mild neuroforaminal narrowing on the left at C3-C4 and bilaterally at the C5-C6 level.
Brain MRI 06/11/2024: No acute intracranial abnormality noted. Mild atrophy with sequelae of mild small vessel ischemic disease.
EMG 12/15/2023:
1. Normal electrodiagnostic examination of the right upper limb.
2. There is no electrodiagnostic evidence of right cervical radiculopathy, plexopathy, myopathy, mononeuropathy, nor peripheral polyneuropathy based on upper extremity examination.
Plan
Impression: worsening tremor, rigidity and ambulatory dysfunction due to Parkinson's disease
-start Rotigotine transdermal patch 1mg daily (side effects to carbidopa levodopa and pramipexole)
-PT/OT/ST
-fall precautions
-DVT prophylaxis
-follow up with outpatient neurologist
All questions encouraged and answered, plan of care discussed with Dr. Martinez, hospitalist and patient
Consultation
Order
Date of Consultation: 12/04/24
Requesting Provider: hospitalist
Reason for Consult: worsening tremor and ambulatory dysfunction
Subjective/Objective
Subjective Data
Date of Service: December 04, 2024
74-year-old male with history of Parkinson disease, coronary artery disease status post CABG, dyslipidemia, hypertension and ambulatory dysfunction, who presented to [facility] on 12/04/2024 with generalized weakness and ambulatory dysfunction. Patient is
an incomplete and vague historian, information obtained from his chart. He lives at home with his . Family notes worsening rigidity, ambulatory dysfunction, insomnia with hallucination and tremor. No urinary symptoms, no nausea or vomiting or
any weight change. So far workup in the ER showed no abnormality. He saw his outpatient neurologist Dr. Irwin from [facility] on 10/31/2024. Per his last note, 'He was evaluated by [facility] December who diagnosed him with
Parkinson's disease and prescribed carbidopa levodopa. He stopped as he thought it was causing him arm pain. He then was evaluated by [facility], who restarted the carbidopa levodopa and ordered a DaTscan. In October, he was started on
pramipexole and told to stop the carbidopa levodopa.' It is unclear if he had a positive DaTscan as we do not have those records.
Current exam shows hypophonia, mild-moderate b/l upper extremity tremor distally with low amplitude, bradykinesia and upgaze restriction.
Objective Data
Vital Signs
Temp Pulse Resp BP Pulse Ox
99.1 F 64 14 146/83 96
12/04/24 12:56 12/04/24 11:53 12/04/24 09:00 12/04/24 11:53 12/04/24 11:53
Lab Results
12/04/24 09:02
12/04/24 09:02
Sodium 142 mmol/L (135-145) 12/04/24 09:02
Potassium 3.7 mmol/L (3.5-5.1) 12/04/24 09:02
BUN 17 mg/dl (9-20) 12/04/24 09:02
Glucose 114 mg/dl (70-99) H 12/04/24 09:02
Calcium 9.7 mg/dl (8.4-10.2) 12/04/24 09:02
Patient Allergies
No Known Allergies Allergy (Verified 12/04/24 08:50)
Review of Systems
-
Unable to obtain full review of systems at this time due to: Acuity
Physical Exam
-
General: No Apparent Distress and Comfortable
HEENT: Normocephalic, Atraumatic and Anicteric
Neck: Full Range of Motion
Respiratory: No Dyspnea
Cardiac: No JVD
GI: Non-distended
Skin: Unremarkable
Extremities: No Clubbing, No Cyanosis and No Edema
Psych: Confused and Depressed
Extended Neurological Exam
Mood & Affect: Mood Unremarkable and Depressed
Attention Span & Concentration: Awake, Alert, Interactive and Other (oriented to month and year but not place, bradyphrenia )
Memory: Vague and Incomplete Historian
Tremor: Head Tremor Absent and Distal (b/l upper extremity distally low amplitude )
Speech: Other (hypophonic)
Cranial Nerves III, IV, : Extraocular Movement: Other (upgaze restriction, blinks to threat)
Cranial Nerve VII: Facial Symmetry: Normal Facial Symmetry
Cranial Nerve VIII: Hearing: Unremarkable Hearing to Normal Conversational Volume
Cranial Nerves IX, X: Palate Movement: Palate Elevation Symmetric
Cranial Nerve XI: Shoulder Shrug: Unremarkable
Muscle Strength, Overall: Spontaneously Moves
Coordination: [id number] Testing Unremarkable and Other (bradykinesia to upper extremities)
Data Reviewed
-
CT Head: Report Reviewed and Image Reviewed
MRI Head: Report Reviewed and Image Reviewed
Labs: Report Reviewed
EMG: Report Reviewed
Reviewed with: Physician, Nurse and Patient
Old Records: Summarized
Medications
-
Active Medications
Generic Name Dose Route Start Last Admin
Trade Name Freq PRN Reason Stop Dose Admin
Acetaminophen 650 mg 12/04/24 14:28
Acetaminophen 325 Mg Tablet PO 01/01/25 14:27
Q4HPRN PRN
mild pain,headache,temp >101F
Aspirin 81 mg 12/05/24 08:00
Aspirin 81 Mg Chewable Tablet PO 01/02/25 07:59
DAILY TY
Atorvastatin Calcium 40 mg 12/04/24 18:00
Atorvastatin (Lipitor) 40 Mg Tablet PO 01/01/25 17:59
QPM TY
Bisacodyl 10 mg 12/04/24 14:28
Bisacodyl 10 Mg Rectal Suppository RECTAL 01/01/25 14:27
[id number] PRN
constipation
Carbidopa/Levodopa 1 tablet 12/04/24 16:00
Carbidopa (25 Mg)/Levodopa (100 Mg) Regular Release Tablet PO 01/01/25 15:59
TID TY
Enoxaparin Sodium 40 mg 12/04/24 18:00
Enoxaparin Sodium 40 Mg/0.4 Ml Syringe SC 01/01/25 17:59
QPM TY
Sodium Chloride 1,000 mls @ 80 mls/hr 12/04/24 14:28
Nss IV 12/05/24 14:27
.[id number] TY
Melatonin 5 mg 12/04/24 22:00
Melatonin 5 Mg Tablet PO 01/01/25 21:59
HS TY
Metoprolol Succinate 25 mg 12/05/24 08:00
Metoprolol 25 Mg Extended Release Tablet PO 01/02/25 07:59
DAILY TY
Ondansetron HCl 4 mg 12/04/24 14:28
Ondansetron 4 Mg/2 Ml Vial IV 01/01/25 14:27
Q6HPRN PRN
nausea and vomiting
Polyethylene Glycol 17 grams 12/04/24 14:28
Polyethylene Glycol Powder 17 Grams Packet PO 01/01/25 14:27
DAILYPRN PRN
constipation
Polyethylene Glycol 17 grams 12/04/24 14:28
Polyethylene Glycol Powder 17 Grams Packet PO 01/01/25 14:27
DAILYPRN PRN
constipation
Senna/Docusate Sodium 1 tablet 12/04/24 14:28
Docusate W/Senna (Yina-Colace) Tablet PO 01/01/25 14:27
BIDPRN PRN
constipation
Home Medications
�Medication �Instructions �Recorded
aspirin 81 mg chewable tablet 81 mg PO DAILY Blood Clot 03/06/24
Prevention/Tx
atorvastatin 40 mg tablet 40 mg PO QPM High Cholesterol 03/06/24
ascorbic acid (vitamin C) 500 mg 500 mg PO DAILY Supplement 04/02/24
tablet (Vitamin C)
acetaminophen 325 mg tablet 650 mg (2 x 325 mg) PO Q4HPRN PRN 04/14/24
mild pain,headache,temp >101F #0
tabs
carbidopa 25 mg-levodopa 100 mg 1 tab PO BID parkinsons disease 12/04/24
tablet
clonidine HCl 0.1 mg tablet 0.1 mg PO TIDPRN PRN high blood 12/04/24
pressure
metoprolol succinate 25 mg 25 mg PO DAILY Heart 12/04/24
tablet,extended release 24 hr disease/condition
polyethylene glycol 3350 17 gram 17 g PO DAILYPRN PRN constipation 12/04/24
oral powder packet (Miralax)
Past History
Past History
ED Past Medical History: CAD, HTN, Hypercholesterolemia, MT and Other (Parkinson's disease)
ED Past Surgical History: Appendectomy and Cardiac (CABG March 2024; PTCA with stent 2010)
Family/Social History
Tobacco: Non-smoker
Alcohol: None
Drug: None
Personal:
Living: with family
Employment: Retired
Family History: Other (Noncontributory)
[2024-12-04 14:34] VITALS: BMI 29.1
--- NOTE | 2024-12-04 14:34 | PTCARENOTE ---
Patient arrived to floor tearful and pulled over to bed. Speech is slow and mildly slurred. Dr. Martinez at bedside. Oriented to room. Call luevano within reach. Bed alarm placed.
[2024-12-04] MEDS: NSS 1000 IV (14:59)
[2024-12-04 15:38] VITALS: BP 129/84
--- NOTE | 2024-12-04 15:58 | PTOTSP ---
Speech Therapy Evaluation:
Pt with acute on chronic risk factors of dysphagia including Parkinson's Disease and acute medical illness with generalized weakness. Oral phase prolonged and mildly discoordinated. No overt s/sx of aspiration at bedside. Pt with increased risk of
aspiration/related pulmonary complications given weak cough strength and ambulatory dysfunction. WBC WNL, pt afebrile, on room air, and without hx of dysphagia. No chest imaging completed thus far.
Recommend:
1. Soft and bite sized solids and thin liquids
2. Medications whole in puree (baseline)
3. Strict aspiration precautions
4. Assistance and supervision with PO intake
5. CONCRETE GRINDER OPERATOR to follow to monitor tolerance of diet, assess canddiacy for diet upgrades, and determine if pt would benefit from instrumental assessment
[2024-12-04] MEDS: LIPITOR 40 MG PO (17:35)
[2024-12-04] MEDS: SINEMET 25-100 1 TABLET PO ×2 (17:35→21:22)
[2024-12-04] MEDS: LOVENOX 40 MG SC (17:35)
[2024-12-04] MEDS: XANAX 0.25 MG PO (17:35)
[2024-12-04] MEDS: NEUPRO 1 MG TRANSDERM (17:38)
[2024-12-04] MEDS: MELATONIN 5 MG PO (21:22)
--- NOTE | 2024-12-04 22:19 | PTCARENOTE ---
Pt able to make his needs known at times hx of dementia,slow speech.On bedalarm for safety.Denies pain at this time.Pt family wants to stay back & nursing superviser was made aware of it.Pt was moved to a private room 420,report provided to the RN.
--- NOTE | 2024-12-04 22:28 | PTCARENOTE ---
Pt received from east to rm 420. Pt oriented to room and call luevano.
[2024-12-04 22:40] VITALS: BP 199/65
[2024-12-04 22:41] VITALS: BMI 29.8
[2024-12-04 23:34] VITALS: BP 132/84
[2024-12-05] MEDS: XANAX 0.25 MG PO ×2 (01:31→09:56)
[2024-12-05] MEDS: NSS 1000 IV (03:10)
[2024-12-05 06:22] LABS: Hematocrit 43.3 % (39.0-52.0); Hemoglobin 14.3 g/dL (13.0-18.0); Mean Corp Hgb Conc. 33.0 g/dL (33.0-37.0); Mean Corpuscular Volume 86.1 fL (80.0-94.0); Platelet Count 191 10^3/uL (130-400); Red Cell Dist. Width 14.1 % (11.5-14.5)
[2024-12-05 06:46] LABS: Blood Urea Nitrogen 15 mg/dl (9-20); Calcium 9.5 mg/dl (8.4-10.2); Carbon Dioxide 29 mmol/L (22-30); Chloride 110 mmol/L (98-107); Estimated Creatinine Clearance 76 ml/min; Glucose 96 mg/dl (70-99); Potassium 3.9 mmol/L (3.5-5.1); Sodium 141 mmol/L (135-145); eGFR > 60.00
[2024-12-05 07:32] VITALS: BP 112/67
[2024-12-05] MEDS: TYLENOL 650 MG PO (08:55)
[2024-12-05] MEDS: NEUPRO 1 MG TRANSDERM (08:55)
[2024-12-05] MEDS: LOW STRENGTH ASPIRIN 81 MG PO (08:56)
[2024-12-05] MEDS: SINEMET 25-100 1 TABLET PO ×2 (08:56→15:18)
[2024-12-05] MEDS: TOPROL XL 25 MG PO (08:56)
--- NOTE | 2024-12-05 12:04 | CM ---
Addendum entered by Martha Harman 12/05/24 15:55:
Met with daughter, requesting referrals to [facility], [facility], and [facility], placed in [facility], will require auth.
Original Note:
CM reviewed chart, reviewed with Hospitalist/Residents. Patient seen bedside with and daughter, initial assessment completed. Patient resides with his in a one story home, two steps to enter. Family reports patient mostly independent at
home, does have a RW. Patient has had VN in past after quadruple bypass, unsure agency. Denies SNF history. PCP Dr. Dobbs, pharmacy [facility], confirms prescription coverage. [facility] form reviewed, provided with copy, placed in chart.
CM discussed therapy recommendations of SNF, family provided with list of local facilities in [facility]. CM will continue to follow for all discharge planning needs.
Plan; SNF pending accepting facility, will discuss with family facility selection
--- NOTE | 2024-12-05 12:51 | W.PN.NEURO.1 ---
Today's Communication / Plan
-
started Rotigotine transdermal patch 1mg daily (side effects to carbidopa levodopa and pramipexole)
Quetiapine 12.5 mg daily for agitation, hold for sedation
agree with palliative care evaluation
Neuro Assessment/Plan
Assessment
74-year-old male with history of Parkinson disease, coronary artery disease status post CABG, dyslipidemia, hypertension and ambulatory dysfunction, who presented to [facility] on 12/04/2024 with generalized weakness and ambulatory dysfunction.
Lumbar Spine X-Ray 12/04/2024: There is a mild upper lumbar spinal levoscoliosis. There is moderate fecal material throughout the colon. There is moderate disc space narrowing at L2/L3. There is mild narrowing at L1/L2, L3/L4 and L5/S1. Vertebral
body heights are maintained.
Head CT 11/18/2024: No acute intracranial abnormality.
Cervical Spine MRI 06/11/2024: There is multilevel mild degenerative changes with resultant mild neuroforaminal narrowing on the left at C3-C4 and bilaterally at the C5-C6 level.
Brain MRI 06/11/2024: No acute intracranial abnormality noted. Mild atrophy with sequelae of mild small vessel ischemic disease.
EMG 12/15/2023:
1. Normal electrodiagnostic examination of the right upper limb.
2. There is no electrodiagnostic evidence of right cervical radiculopathy, plexopathy, myopathy, mononeuropathy, nor peripheral polyneuropathy based on upper extremity examination.
Impression: worsening tremor, rigidity and ambulatory dysfunction due to Parkinson's disease
Plan
started Rotigotine transdermal patch 1mg daily (side effects to carbidopa levodopa and pramipexole)
Quetiapine 12.5 mg daily for agitation, hold for sedation
agree with palliative care evaluation
PT/OT/ST
fall precautions
Will follow as needed
Subjective/Objective
Subjective Data
Date of Service: December 05, 2024
Objective Data
Vital Signs
Temp Pulse Resp BP Pulse Ox
36.8 C 65 20 112/67 96
12/05/24 07:32 12/05/24 08:56 12/05/24 07:32 12/05/24 08:56 12/05/24 07:32
Lab Results
12/05/24 05:52
12/05/24 05:52
Sodium 141 mmol/L (135-145) 12/05/24 05:52
Potassium 3.9 mmol/L (3.5-5.1) 12/05/24 05:52
BUN 15 mg/dl (9-20) 12/05/24 05:52
Glucose 96 mg/dl (70-99) 12/05/24 05:52
Calcium 9.5 mg/dl (8.4-10.2) 12/05/24 05:52
Patient Allergies
No Known Allergies Allergy (Verified 12/04/24 08:50)
Data Reviewed
-
Labs: Report Reviewed
Reviewed with: Physician and Family (via phone)
Old Records: Summarized
--- NOTE | 2024-12-05 13:53 | W.PN.HOSP.TC ---
Addendum entered and electronically signed by Aneesh Naidu MD 12/05/24 16:36:
Likely progression of Parkinson's
Neurology following started on
- Rotigotine 1mg transdermal patch 1mg daily
- Seroquel 25 mg at bedtime hold for sedation
CAD
Continue Lipitor DAPT beta-silva
Hypertension continue Lasix beta-silva
Family asking for placement
Evaluated by physical therapy recommends SNF
Original Note:
Today's Communication/Plan
-
Consulted neurologist- suggested
Consulted case management regarding disposition status of this patient.
CBC, CMP
Assessment / Plan
Assessment / Plan
74 yrs old M with past h/o Parkinsonism, CAD, CABG on 2023, dyslipidemia, Hypertension, Ambulatory dysfunction presented currently with weakness.
# Parkinson's disease:
Currently pt is on slow gait,agitated;
Lumbar Spine X-Ray 12/04/2024: There is a mild upper lumbar spinal levoscoliosis. There is moderate fecal material throughout the colon. There is moderate disc space narrowing at L2/L3. There is mild narrowing at L1/L2, L3/L4 and L5/S1. Vertebral
body heights are maintained.
Head CT 11/18/2024: No acute intracranial abnormality.
Cervical Spine MRI 06/11/2024: There is multilevel mild degenerative changes with resultant mild neuroforaminal narrowing on the left at C3-C4 and bilaterally at the C5-C6 level.
Brain MRI 06/11/2024: No acute intracranial abnormality noted. Mild atrophy with sequelae of mild small vessel ischemic disease.
EMG 12/15/2023:
1. Normal electrodiagnostic examination of the right upper limb.
2. There is no electrodiagnostic evidence of right cervical radiculopathy, plexopathy, myopathy, mononeuropathy, nor peripheral polyneuropathy based on upper extremity examination.
Continue Carbidopa 25 -Levodopa 100 mg TID
Quetiapine 12.5 mg daily for agitation, hold for sedation.
Neurology consulted: Started on Rotigotine 1mg transdermal patch 1mg daily (side effects to carbidopa levodopa and pramipexole)
PT/OT/ST evaluation order placed.
Fall precautions has taken.
Acute causes for delirium, dementia were ruled out by urinalysis, CBC, CMP lab work up.
# CAD:
Continue Atorvastatin 40 mg po, aspirin 81 mg Tablet, Clopidogrel 75 mg PO
#Hypertension:
Continue metoprolol succinate 25 mg Extended release tablet, furosemide 40 mg
Disposition: Palliative care ( pending status)
DVT Prophylaxis: Enoxaparin 40 mg SC
Anticipated Discharge: Within 24 hours
Subjective/Interval History
-
Date of Service: December 05, 2024
Patient was little drowsy today morning when i saw him.
History and concerns obtain from his at the bedside.
's concern for today he is getting weaker slowly to the point he cant walk with rolling walker. He is recently agitated, hallucinating, sleeplessness. Depending on the medication history, there was a switch of anti- parkinsonism medication(from
[id number]) to Pramipexole recently around October. Afterwards his symptoms worsened.
Objective Data
-
Labs:
12/05/24 05:52
12/05/24 05:52
Laboratory Results
Total Bilirubin 1.7 mg/dl (0.2-1.3) H 12/04/24 09:02
AST 34 U/L (17-59) 12/04/24 09:02
ALT 21 U/L (0-50) 12/04/24 09:02
Alkaline Phosphatase 50 U/L (38-126) 12/04/24 09:02
Laboratory Results
12/05/24
05:52
WBC 8.3
Hgb 14.3
Hct 43.3
Plt Count 191
Sodium 141
Potassium 3.9
Chloride 110 H
Carbon Dioxide 29
BUN 15
Creatinine 0.9
Glucose 96
Calcium 9.5
Vital Signs:
Vital Signs
Temp Pulse Resp BP Pulse Ox
98.3 F 65 20 112/67 96
12/05/24 07:32 12/05/24 08:56 12/05/24 07:32 12/05/24 08:56 12/05/24 07:32
I&O
12/04/24 12/05/24 12/06/24
06:59 06:59 06:59
Intake Total 1440 / 1440 480 / 480
Output Total 975 / 975
Balance 465 / 465 480 / 480
Review of Systems
-
History Source: Family ()
Constitutional: Reports No Symptoms
EENT: Reports No Symptoms Reported
Respiratory: Reports No Symptoms
Cardiac: Reports No Symptoms
Abdomen/GI: Reports No Symptoms
Genitourinary: Reports No Symptoms
Skin: Reports No Symptoms
Neuro: Reports Weakness (Bed ridden), Tremors (resting) and Other
Endocrine: Reports No Symptoms
Hematologic / Lymphatic: Reports No Symptoms
Allergy / Immunology: Reports No Symptoms
Physical Exam
-
General: Slurred Speech and Appears Chronically Ill
Respiratory: Clear to Auscultation
Cardiac: Regular Rhythm and S1/S2
GI: Soft, Nontender and Nondistended
Genito-urinary: No Costovertebral Tender and [place] (cocentrated urine)
Neuro: Tremors (resting tremor), Central Nerve's Intact (parallel eye movement pt was following; Upward gaze is absent. ), DTR's Intact & Symmetrica (Hyporeflexia in UL, LL, Babinski sign negative) and Other (Slow gait, rigid, Sleepy, slurred
speech, Not oriented to time, place, person, mask face.)
Hematologic / Lymphatic: No Lymphadenopathy
Psych: Apparent Dementia
[2024-12-05 15:04] VITALS: BP 137/95
[2024-12-05] MEDS: SEROQUEL 12.5 MG PO (15:18)
[2024-12-05] MEDS: LOVENOX 40 MG SC (17:16)
[2024-12-05] MEDS: LIPITOR 40 MG PO (17:17)
[2024-12-05] MEDS: SINEMET 25-100 PO (23:00)
[2024-12-05] MEDS: MELATONIN PO (23:00)
[2024-12-05 23:31] VITALS: BP 140/82
[2024-12-06] MEDS: XANAX 0.25 MG PO (02:35)
[2024-12-06 06:07] LABS: Hematocrit 43.7 % (39.0-52.0); Hemoglobin 14.5 g/dL (13.0-18.0); Mean Corp Hgb Conc. 33.2 g/dL (33.0-37.0); Mean Corpuscular Volume 86.9 fL (80.0-94.0); Nucleated Red Blood Cells % 0 % (-); Platelet Count 195 10^3/uL (130-400); Red Cell Dist. Width 14.0 % (11.5-14.5)
[2024-12-06 06:23] VITALS: BMI 29.0
[2024-12-06 06:30] LABS: ALT (SGPT) 39 U/L (0-50); AST (SGOT) 34 U/L (17-59); Albumin 4.2 g/dl (3.5-5.0); Alkaline Phosphatase 54 U/L (38-126); Blood Urea Nitrogen 12 mg/dl (9-20); Calcium 9.6 mg/dl (8.4-10.2); Carbon Dioxide 26 mmol/L (22-30); Chloride 107 mmol/L (98-107); Estimated Creatinine Clearance 68 ml/min; Glucose 100 mg/dl (70-99); Potassium 3.7 mmol/L (3.5-5.1); Sodium 142 mmol/L (135-145); Total Protein 6.5 g/dl (6.3-8.2); eGFR > 60.00
--- NOTE | 2024-12-06 06:36 | W.PN.HOSP.TC ---
Addendum entered and electronically signed by Aneesh Naidu MD 12/07/24 22:41:
Likely progression of Parkinson's
Neurology following started on
- Rotigotine transdermal patch dose adjusted by neuro
- Seroquel started by neuro and dose adjusted
CAD
Continue Lipitor DAPT beta-silva
Hypertension continue Lasix beta-silva
Family asking for placement
Evaluated by physical therapy recommends SNF
Original Note:
Today's Communication/Plan
-
Patient is getting discharge to the Rehab once it gets finalized.
Decrease the dose of Carbidopa Levodopa 25/100 from 3 times a day dosing to twice a day dosing
Increase newly initiated quetiapone 12.5 mg to BID from daily for agitation.
Assessment / Plan
Assessment / Plan
74 yrs old M with past h/o Parkinsonism, CAD, CABG on 2023, dyslipidemia, Hypertension, Ambulatory dysfunction presented currently with weakness.
# Parkinson's disease:
Currently pt is on slow gait,agitated;
Lumbar Spine X-Ray 12/04/2024: There is a mild upper lumbar spinal levoscoliosis. There is moderate fecal material throughout the colon. There is moderate disc space narrowing at L2/L3. There is mild narrowing at L1/L2, L3/L4 and L5/S1. Vertebral
body heights are maintained.
Head CT 11/18/2024: No acute intracranial abnormality.
Cervical Spine MRI 06/11/2024: There is multilevel mild degenerative changes with resultant mild neuroforaminal narrowing on the left at C3-C4 and bilaterally at the C5-C6 level.
Brain MRI 06/11/2024: No acute intracranial abnormality noted. Mild atrophy with sequelae of mild small vessel ischemic disease.
EMG 12/15/2023:
1. Normal electrodiagnostic examination of the right upper limb.
2. There is no electrodiagnostic evidence of right cervical radiculopathy, plexopathy, myopathy, mononeuropathy, nor peripheral polyneuropathy based on upper extremity examination.
Neurology consulted:
To decrease the dose of Carbidopa Levodopa 25/100 from 3 times a day dosing to twice a day dosing
To Increase newly initiated quetiapine 12.5 mg to BID from daily for agitation.
Started on Rotigotine 2 mg transdermal patch 1mg daily (side effects to carbidopa levodopa and pramipexole)
PT/OT/ST evaluation order placed.
Fall precautions has taken.
Acute causes for delirium, dementia were ruled out by urinalysis, CBC, CMP lab work up.
# CAD:
Continue Atorvastatin 40 mg po, aspirin 81 mg Tablet, Clopidogrel 75 mg PO
#Hypertension:
Continue metoprolol succinate 25 mg Extended release tablet, furosemide 40 mg
Disposition: Palliative care ( pending status)
DVT Prophylaxis: Enoxaparin 40 mg SC
Anticipated Discharge: 24 - 48 hours
Subjective/Interval History
-
Date of Service: December 06, 2024
Patient symptoms are worsening comparing from yesterday.
Objective Data
-
Labs:
12/06/24 05:35
12/06/24 05:35
Laboratory Results
Total Bilirubin 2.1 mg/dl (0.2-1.3) H 12/06/24 05:35
AST 34 U/L (17-59) 12/06/24 05:35
ALT 39 U/L (0-50) 12/06/24 05:35
Alkaline Phosphatase 54 U/L (38-126) 12/06/24 05:35
Laboratory Results
12/06/24
05:35
WBC 9.3
Hgb 14.5
Hct 43.7
Plt Count 195
Sodium 142
Potassium 3.7
Chloride 107
Carbon Dioxide 26
BUN 12
Creatinine 0.9
Glucose 100 H
Calcium 9.6
Total Bilirubin 2.1 H
AST 34
ALT 39
Alkaline Phosphatase 54
Vital Signs:
Vital Signs
Temp Pulse Resp BP Pulse Ox
97.6 F 65 20 140/82 96
12/05/24 15:04 12/05/24 23:31 12/05/24 23:31 12/05/24 23:31 12/05/24 23:31
I&O
12/04/24 12/05/24 12/06/24
06:59 06:59 06:59
Intake Total 1440 / 1440 480 / 480
Output Total 975 / 975
Balance 465 / 465 480 / 480
[2024-12-06 07:15] VITALS: BP 124/75
[2024-12-06] MEDS: NEUPRO 1 MG TRANSDERM (08:26)
[2024-12-06] MEDS: SINEMET 25-100 1 TABLET PO ×2 (09:55→19:38)
[2024-12-06] MEDS: LOW STRENGTH ASPIRIN 81 MG PO (09:55)
[2024-12-06] MEDS: SEROQUEL 12.5 MG PO ×2 (09:55→19:38)
[2024-12-06] MEDS: TOPROL XL 25 MG PO (09:56)
--- NOTE | 2024-12-06 10:41 | W.PN.NEURO.1 ---
Today's Communication / Plan
-
agree with palliative care evaluation
Increase newly initiated rotigotine transdermal patch from 1mg to 2 mg daily
Decrease dosing of carbidopa levodopa 25/100 from 3 times a day dosing to twice a day dosing
Increase newly initiated quetiapine 12.5 mg to BID from daily for agitation
Neuro Assessment/Plan
Assessment
74-year-old male with history of Parkinson disease, coronary artery disease status post CABG, dyslipidemia, hypertension and ambulatory dysfunction, who presented to [facility] on 12/04/2024 with generalized weakness and ambulatory dysfunction.
Lumbar Spine X-Ray 12/04/2024: There is a mild upper lumbar spinal levoscoliosis. There is moderate fecal material throughout the colon. There is moderate disc space narrowing at L2/L3. There is mild narrowing at L1/L2, L3/L4 and L5/S1. Vertebral
body heights are maintained.
Head CT 11/18/2024: No acute intracranial abnormality.
Brain MRI 06/11/2024: No acute intracranial abnormality noted. Mild atrophy with sequelae of mild small vessel ischemic disease.
Impression: worsening tremor, rigidity and ambulatory dysfunction due to Parkinson's disease
Plan
agree with palliative care evaluation
Increase newly initiated rotigotine transdermal patch from 1mg to 2 mg daily
Decrease dosing of carbidopa levodopa 25/100 from 3 times a day dosing to twice a day dosing
Increase newly initiated quetiapine 12.5 mg to BID from daily for agitation
PT/OT/ST
fall precautions
Will follow as needed
Subjective/Objective
Subjective Data
Date of Service: December 06, 2024
Objective Data
Vital Signs
Temp Pulse Resp BP Pulse Ox
36.4 C 73 18 124/75 96
12/06/24 07:15 12/06/24 07:15 12/06/24 07:15 12/06/24 07:15 12/06/24 07:15
Lab Results
12/06/24 05:35
12/06/24 05:35
Sodium 142 mmol/L (135-145) 12/06/24 05:35
Potassium 3.7 mmol/L (3.5-5.1) 12/06/24 05:35
BUN 12 mg/dl (9-20) 12/06/24 05:35
Glucose 100 mg/dl (70-99) H 12/06/24 05:35
Calcium 9.6 mg/dl (8.4-10.2) 12/06/24 05:35
Patient Allergies
No Known Allergies Allergy (Verified 12/04/24 08:50)
Data Reviewed
-
Labs: Report Reviewed
Reviewed with: Physician and Family (by phone)
Old Records: Summarized
Past History
Past History
ED Past Medical History: CAD, HTN, Hypercholesterolemia, NC and Other (Parkinson's disease)
ED Past Surgical History: Appendectomy and Cardiac (CABG March 2024; PTCA with stent 2010)
Social History
Tobacco: Non-smoker
Alcohol: None
Drug: None
Personal:
Living: with family
Employment: Retired
Family History
Family History: Other (Noncontributory)
Medications
-
Medications:
Generic Name Dose Route Start Last Admin
Trade Name Freq PRN Reason Stop Dose Admin
Acetaminophen 650 mg 12/04/24 14:28 12/05/24 08:55
Acetaminophen 325 Mg Tablet PO 01/01/25 14:27 650 mg
Q4HPRN PRN Administration
mild pain,headache,temp >101F
Alprazolam 0.25 mg 12/04/24 17:25 12/06/24 02:35
Alprazolam 0.25 Mg Tablet PO 01/01/25 17:24 0.25 mg
Q8HPRN PRN Administration
anxiety
Aspirin 81 mg 12/05/24 08:00 12/06/24 09:55
Aspirin 81 Mg Chewable Tablet PO 01/02/25 07:59 81 mg
DAILY TY Administration
Atorvastatin Calcium 40 mg 12/04/24 18:00 12/05/24 17:17
Atorvastatin (Lipitor) 40 Mg Tablet PO 01/01/25 17:59 40 mg
QPM TY Administration
Bisacodyl 10 mg 12/04/24 14:28
Bisacodyl 10 Mg Rectal Suppository RECTAL 01/01/25 14:27
[id number] PRN
constipation
Carbidopa/Levodopa 1 tablet 12/04/24 16:00 12/06/24 09:55
Carbidopa (25 Mg)/Levodopa (100 Mg) Regular Release Tablet PO 01/01/25 15:59 1 tablet
TID TY Administration
Enoxaparin Sodium 40 mg 12/04/24 18:00 12/05/24 17:16
Enoxaparin Sodium 40 Mg/0.4 Ml Syringe SC 01/01/25 17:59 40 mg
QPM TY Administration
Melatonin 5 mg 12/04/24 22:00 12/05/24 23:00
Melatonin 5 Mg Tablet PO 01/01/25 21:59 Not Given
HS TY
Metoprolol Succinate 25 mg 12/05/24 08:00 12/06/24 09:56
Metoprolol 25 Mg Extended Release Tablet PO 01/02/25 07:59 25 mg
DAILY TY Administration
Ondansetron HCl 4 mg 12/04/24 14:28
Ondansetron 4 Mg/2 Ml Vial IV 01/01/25 14:27
Q6HPRN PRN
nausea and vomiting
Polyethylene Glycol 17 grams 12/04/24 14:28
Polyethylene Glycol Powder 17 Grams Packet PO 01/01/25 14:27
DAILYPRN PRN
constipation
Quetiapine Fumarate 12.5 mg 12/05/24 14:00 12/06/24 09:55
Quetiapine 25 Mg Tablet PO 01/02/25 13:59 12.5 mg
DAILY TY Administration
Rotigotine 1 mg 12/04/24 16:45 12/06/24 08:26
Rotigotine (Neupro) 1 Mg Patch TRANSDERM 01/01/25 16:44 1 mg
DAILY TY Administration
Senna/Docusate Sodium 1 tablet 12/04/24 14:28
Docusate W/Senna (Yina-Colace) Tablet PO 01/01/25 14:27
BIDPRN PRN
constipation
Sodium Chloride 0 flush 12/04/24 15:00
Sodium Chloride 0.9% (Flush) Syringe IV 01/01/25 14:59
PER PROTOCOL TY
--- NOTE | 2024-12-06 11:57 | CM ---
Addendum entered by Martha Harman 12/06/24 15:49:
Met with family, discussed Palliative Care, family not interested at this time.
Addendum entered by Martha Harman 12/06/24 14:37:
Auth submitted to [facility]- faxed to [phone], pending auth #[id number], ref # for call [id number]
[facility]
Report: [phone]

Original Note:
CM reviewed chart, consult received for discharge planning. Patient seen bedside with multiple family members, spoke with and daughter, discussed [facility] patient, no beds at [place], [facility] able to offer bed. Family
agreeable to [facility], will initiate auth, family going to tour [facility]. Patient will require ambulance transport upon discharge. CM will continue to follow for all discharge planning needs.
Plan; [facility], pending auth approval
[2024-12-06 15:00] VITALS: BP 141/77
[2024-12-06] MEDS: LIPITOR 40 MG PO (18:00)
[2024-12-06] MEDS: LOVENOX 40 MG SC (18:01)
[2024-12-06] MEDS: MELATONIN 5 MG PO (19:39)
[2024-12-06] MEDS: TYLENOL 650 MG PO (19:49)
[2024-12-06 23:00] VITALS: BP 117/83
[2024-12-07 05:17] VITALS: BMI 29.3
[2024-12-07 07:20] VITALS: BP 138/80
[2024-12-07] MEDS: SEROQUEL 12.5 MG PO (07:53)
[2024-12-07] MEDS: TYLENOL 650 MG PO (07:54)
[2024-12-07] MEDS: SINEMET 25-100 1 TABLET PO (07:55)
[2024-12-07] MEDS: LOW STRENGTH ASPIRIN 81 MG PO (07:56)
[2024-12-07] MEDS: TOPROL XL 25 MG PO (07:56)
[2024-12-07 08:03] LABS: Hematocrit 43.7 % (39.0-52.0); Hemoglobin 14.4 g/dL (13.0-18.0); Mean Corp Hgb Conc. 33.0 g/dL (33.0-37.0); Mean Corpuscular Volume 86.5 fL (80.0-94.0); Nucleated Red Blood Cells % 0 % (-); Platelet Count 194 10^3/uL (130-400); Red Cell Dist. Width 14.3 % (11.5-14.5)
[2024-12-07] MEDS: NEUPRO 2 MG TRANSDERM (08:06)
--- NOTE | 2024-12-07 08:28 | CM ---
CM reviewed chart, call received [facility], 12/07-12/11, next review 12/11, auth ID [id number], ref #[id number], CM to provide updates to: Sheree Hudson, fax [phone]- updates to liaison at [facility].
Patient will require ambulance transport. CM will continue to follow for all discharge planning needs.
Plan; [facility], ambulance transport
[facility]
Report: [phone]
[2024-12-07 08:30] LABS: ALT (SGPT) 46 U/L (0-50); AST (SGOT) 38 U/L (17-59); Albumin 4.1 g/dl (3.5-5.0); Alkaline Phosphatase 50 U/L (38-126); Blood Urea Nitrogen 18 mg/dl (9-20); Calcium 9.5 mg/dl (8.4-10.2); Carbon Dioxide 27 mmol/L (22-30); Chloride 109 mmol/L (98-107); Estimated Creatinine Clearance 68 ml/min; Glucose 116 mg/dl (70-99); Potassium 4.4 mmol/L (3.5-5.1); Sodium 143 mmol/L (135-145); Total Protein 6.5 g/dl (6.3-8.2); eGFR > 60.00
[2024-12-07 14:45] VITALS: BP 116/93
--- NOTE | 2024-12-07 16:03 | W.PN.HOSP.TC ---
Addendum entered and electronically signed by Aneesh Naidu MD 12/07/24 22:42:
Read, reviewed, and agree. See same day progress note for additional details. Time spent coordinating care, DC planning, review of DC plan of care with resident, transition of care, review of records in EMR, med rec, consults, notes, d/w
consultants, nursing, family, and CM
More than 30 minutes spent in discharge including
Final examination of the patient
Summarizing hospital stay
Instructions for continuing care to all relevant caregivers
Preparation of discharge records, prescriptions, and referral forms
Total time spent (in minutes): 33
Original Note:
Today's Communication/Plan
-
Follow up with Neurologist in future.
Assessment / Plan
Assessment / Plan
74 yrs old M with past h/o Parkinsonism, CAD, CABG on 2023, dyslipidemia, Hypertension, Ambulatory dysfunction presented currently with weakness.
# Parkinson's disease:
Currently pt is on slow gait,agitated;
Lumbar Spine X-Ray 12/04/2024: There is a mild upper lumbar spinal levoscoliosis. There is moderate fecal material throughout the colon. There is moderate disc space narrowing at L2/L3. There is mild narrowing at L1/L2, L3/L4 and L5/S1. Vertebral
body heights are maintained.
Head CT 11/18/2024: No acute intracranial abnormality.
Cervical Spine MRI 06/11/2024: There is multilevel mild degenerative changes with resultant mild neuroforaminal narrowing on the left at C3-C4 and bilaterally at the C5-C6 level.
Brain MRI 06/11/2024: No acute intracranial abnormality noted. Mild atrophy with sequelae of mild small vessel ischemic disease.
EMG 12/15/2023:
1. Normal electrodiagnostic examination of the right upper limb.
2. There is no electrodiagnostic evidence of right cervical radiculopathy, plexopathy, myopathy, mononeuropathy, nor peripheral polyneuropathy based on upper extremity examination.
Neurology consulted:
Dose of Carbidopa Levodopa 25/100 from 3 times a day dosing to twice a day dosing.
Increased newly initiated quetiapine 12.5 mg to BID from daily for agitation.
Started on Rotigotine 2 mg transdermal patch 1mg daily (side effects to carbidopa levodopa and pramipexole)
PT/OT/ST evaluation order placed.
Fall precautions has taken.
Acute causes for delirium, dementia were ruled out by urinalysis, CBC, CMP lab work up.
# CAD:
Continue Atorvastatin 40 mg po, aspirin 81 mg Tablet, Clopidogrel 75 mg PO
#Hypertension:
Continue metoprolol succinate 25 mg Extended release tablet, furosemide 40 mg
Disposition: [facility]
DVT Prophylaxis: Enoxaparin 40 mg SC
Anticipated Discharge: Today
Subjective/Interval History
-
Date of Service: December 07, 2024
Patient doesn't has a concern for cough. He was sleeping
History obtained from patients and daughter at the bedside. His agitation, restlessness much improved comparing from yesterday.
Objective Data
-
Labs:
12/07/24 07:51
12/07/24 07:51
Laboratory Results
Total Bilirubin 2.1 mg/dl (0.2-1.3) H 12/07/24 07:51
AST 38 U/L (17-59) 12/07/24 07:51
ALT 46 U/L (0-50) 12/07/24 07:51
Alkaline Phosphatase 50 U/L (38-126) 12/07/24 07:51
Laboratory Results
12/07/24
07:51
WBC 10.0
Hgb 14.4
Hct 43.7
Plt Count 194
Sodium 143
Potassium 4.4
Chloride 109 H
Carbon Dioxide 27
BUN 18
Creatinine 0.9
Glucose 116 H
Calcium 9.5
Total Bilirubin 2.1 H
AST 38
ALT 46
Alkaline Phosphatase 50
Vital Signs:
Vital Signs
Temp Pulse Resp BP Pulse Ox
98.1 F 76 18 116/93 96
12/07/24 14:45 12/07/24 14:45 12/07/24 14:45 12/07/24 14:45 12/07/24 14:45
I&O
12/06/24 12/07/24 12/08/24
06:59 06:59 06:59
Intake Total 480 / 480 480 / 480
Output Total 400 / 400 300 / 300
Balance 480 / 480 80 / 80 -300 / -300
Review of Systems
-
Unable to obtain full review of systems at this time due to: Other (sleeping)
History Source: Family
All other systems: Reviewed and negative
Physical Exam
-
General: No Apparent Distress
HEENT: Moist Mucous Membranes
Respiratory: Clear to Auscultation
Cardiac: Regular Rhythm and S1/S2
GI: Soft and Nondistended
Genito-urinary: No Costovertebral Tender
Skin: Warm
Neuro: AO x 3, Tremors (resting tremor.) and DTR's Intact & Symmetrica (Hypotonia, Lower limb hyporeflexia, upper limb normal reflex. )
Hematologic / Lymphatic: No Lymphadenopathy
Psych: Other (sleeping)
== END 2024-12-07 16:09 ==
LOC: 4 WEST ACU 13:38
PROVIDERS: Physician Assistant; ADMITTING PHYSICIAN Internal Medicine; ATTENDING PHYSICIAN Hospitalist; EMERGENCY PHYSICIAN Emergency Medicine; FAMILY PHYSICIAN Nurse Practitioner
DX: G20.A1 Parkinson's disease without dyskinesia, without mention of fluctuations (principal); I10 Essential (primary) hypertension; I25.10 Atherosclerotic heart disease of native coronary artery without angina pectoris; Z95.1 Presence of aortocoronary bypass graft; E78.00 Pure hypercholesterolemia, unspecified; M48.061 Spinal stenosis, lumbar region without neurogenic claudication; G47.00 Insomnia, unspecified; Z79.82 Long term (current) use of aspirin; I25.2 Old myocardial infarction; Z95.5 Presence of coronary angioplasty implant and graft; M47.812 Spondylosis without myelopathy or radiculopathy, cervical region; Z79.02 Long term (current) use of antithrombotics/antiplatelets
CPT/HCPCS: 72100; 80048; 80053; 81003; 81015; 85025; 85027; 87040; 92526; 92610; 93005; 97167; 97530; 99285; G0378

== ENCOUNTER → 2024-12-10 10:51 | Outpatient (REF) | payer OTHER, MEDICARE, SELFPAY ==
[2024-12-10 12:28] LABS: Hematocrit 43.5 % (39.0-52.0); Hemoglobin 14.4 g/dL (13.0-18.0); Mean Corp Hgb Conc. 33.1 g/dL (33.0-37.0); Mean Corpuscular Volume 86.0 fL (80.0-94.0); Nucleated Red Blood Cells % 0 % (-); Platelet Count 192 10^3/uL (130-400); Red Cell Dist. Width 14.1 % (11.5-14.5)
[2024-12-10 12:36] LABS: ALT (SGPT) 47 U/L (0-50); AST (SGOT) 35 U/L (17-59); Albumin 4.0 g/dl (3.5-5.0); Alkaline Phosphatase 70 U/L (38-126); Blood Urea Nitrogen 18 mg/dl (9-20); Calcium 8.9 mg/dl (8.4-10.2); Carbon Dioxide 24 mmol/L (22-30); Chloride 106 mmol/L (98-107); Glucose 97 mg/dl (70-99); Potassium 3.9 mmol/L (3.5-5.1); Sodium 139 mmol/L (135-145); Total Protein 6.3 g/dl (6.3-8.2); eGFR > 60.00
== END ==
LOC: OLABP 10:51
PROVIDERS: ATTENDING PHYSICIAN Family Medicine
DX: G20.C Parkinsonism, unspecified (principal); E78.00 Pure hypercholesterolemia, unspecified; I10 Essential (primary) hypertension
CPT/HCPCS: 36415; 80053; 85025

== ENCOUNTER → 2024-12-11 08:56 | Outpatient (REF) | payer MEDICARE, SELFPAY | LOC: RCS 08:56 | PROVIDERS: ATTENDING PHYSICIAN Internal Medicine Interventional Cardiology; FAMILY PHYSICIAN Internal Medicine | DX: I10 Essential (primary) hypertension (principal); I48.0 Paroxysmal atrial fibrillation | CPT/HCPCS: 93306 ==